=== PATIENT | female | born 1940 | race Caucasian/White ===

== ENCOUNTER → 2017-12-22 11:17 | Outpatient (CLI) | payer MEDICARE, OTHER, SELFPAY ==
--- NOTE | 2017-12-22 11:24 | BI_ITS ---
MAMMOGRAPHY - BILATERAL SCREENING REASON FOR EXAM: Female, 77 years old. Routine annual screening examination. PERTINENT HISTORY: Non-contributory. History of prior bilateral breast reduction surgery. TECHNIQUE: Digital bilateral breast ella (3D mammographic acquisition) in the CC and MLO projections. 2-D mediolateral oblique (MLO) and craniocaudad (CC) views of both breasts were obtained. CAD: Full Field Digital Mammography with Computer Added Detection was performed. COMPARISON: Comparison is made with prior study dated July 03, 2013. FINDINGS: Breast Composition: There are scattered areas of fibroglandular density. There are no dominant masses or suspicious calcifications. No other significant abnormalities are identified. There has been no significant change since the prior study. BI/SCREENING MAMM (CAD), BILAT IMPRESSION: Stable bilateral screening mammogram. Yearly follow-up mammogram recommended. (A) ASSESSMENT CATEGORY: BIRADS Category 1: Negative. A letter regarding these results will be sent to the patient by the facility within 30 days. Approximately 10% of breast cancers are not detected by mammography. A normal mammogram should not delay biopsy of a clinically suspicious abnormality. [id number] Electronically Signed: Louis Samuel MD at 11:19 EDT Tel [phone], Service support ,
--- NOTE | 2017-12-22 11:45 | BD_ITS ---
STUDY: DUAL ENERGY X-RAY ABSORPTIOMETRY / DXA REASON FOR EXAM: Female, 77 years old. The patient is postmenopausal. Loss of height. TECHNIQUE: Bone Mineral Density (BMD) measurements of lumbar spine and bilateral hips were obtained. COMPARISON: None. FINDINGS: Lumbar Spine (L1-L4): g/cm2 (1.228) / T-score (0.5) / Z-score (2.3) Findings are suggestive of normal bone density with a low fracture risk. Left Femur Total: g/cm2 (0.892) / T-score (-0.9) / Z-score (1.0) Left Femoral Neck: g/cm2 (0.828) / T-score (-1.5) / Z-score (0.6) Right Femur Total: g/cm2 (0.903) / T-score (-0.8) / Z-score (1.1) Right Femoral Neck: g/cm2 (0.899) / T-score (-1.0) / Z-score (1.1) Right Forearm: g/cm2 ( ) / T-score ( ) / Z-score ( ) BD/Dexa Bone Density Study IMPRESSION: The patient is considered osteopenic as outlined below according to World Ajay Organization (WHO) criteria with a moderate fracture risk. Reference Information: The T-score is the number of standard deviations above or below the standard which is normal for young adults at their peak bone mineral density. The World Health Organization (WHO) interprets the T-scores as follows: Above -1 Normal bone density Between -1 and -2.5 Osteopenia Equal to / or below -2.5 Osteoporosis As a practical clinical guideline, osteopenia may be graded as follows: Mild -1 through -1.5 Moderate -1.6 through -2.0 Severe -2.1 through -2.4 The Z-score is the number of standard deviations above or below age-matched controls. A Z-score of less than -1.5 would be considered abnormal. References: 1. NIH Osteoporosis and Related Bone Diseases http://www.osteo.org 2. International Society for Clinical Densitometry http://www.iscd.org 3. National Osteoporosis Foundation http://www.nof.org Electronically Signed: Louis Samuel MD at 10:52 EDT Tel [phone], Service support ,
== END ==
PROVIDERS: Family Provider Family Medicine; PCP Family Medicine; Visit Provider Family Medicine
DX: Z00.00 Encounter for general adult medical examination without abnormal findings (principal); Z12.31 Encounter for screening mammogram for malignant neoplasm of breast; N95.9 Unspecified menopausal and perimenopausal disorder
CPT/HCPCS: 77063; 77067; 77080

== ENCOUNTER → 2018-01-26 08:44 | Outpatient (CLI) | payer MEDICARE, OTHER, SELFPAY ==
[2018-01-26 10:51] LABS: ALB/GLOB Ratio 1.1 RATIO (0.9-2.4); AST(SGOT) 20 U/L (15-37); Alanine Aminotransfer ALT/SGPT 28 U/L (13-56); Albumin, Serum 3.9 g/dL (3.2-5.0); Alkaline Phosphatase 64 U/L (45-117); Anion Gap 7 (5-15); BUN 9 mg/dL (7-18); BUN/Creat Ratio 9.6 RATIO (10-20); Calcium,Total 8.8 mg/dL (8.5-10.1); Chloride 106 mmol/L (98-107); Cholesterol 166 mg/dL (200); Creatinine, Serum 0.94 mg/dL (0.55-1.02); EST Glomerular Filtration Rate 61 mL/min (>60); Est Glom Filt Rate - Afr Amer 74 mL/min (>60); Globulin 3.6 g/dL (2.2-4.2); Glucose 92 mg/dL (74-106); High Density Lipoprotein 64 mg/dL; Magnesium 2.2 mg/dL (1.6-2.6); Potassium 4.1 mmol/L (3.5-5.1); Protein, Total 7.5 g/dL (6.4-8.2); Sodium Level 142 mmol/L (136-145); Thyroid Stim Hormone (TSH) 3.03 uIU/mL (0.358-3.74); Triglycerides 119 mg/dL; Very Low Density Lipoprotein 24 mg/dL (5-40)
[2018-01-26 11:12] LABS: Microalbumin,Random Urine 6.6 mg/L (NO RANGE EST.); Microalbumin:Creatinine Ratio 8.4 mg/g CRE (<30 mg/g CRE)
[2018-01-26 11:41] LABS: Vitamin D,25 Hydroxy 8.6 ng/mL (29.95-100.01)
== END ==
PROVIDERS: Family Provider Family Medicine; PCP Family Medicine; Visit Provider Family Medicine
DX: Z00.00 Encounter for general adult medical examination without abnormal findings (principal); I10 Essential (primary) hypertension; M85.80 Other specified disorders of bone density and structure, unspecified site; E78.00 Pure hypercholesterolemia, unspecified
CPT/HCPCS: 36415; 80053; 80061; 82043; 82306; 82570; 83735; 84443

== ENCOUNTER → 2019-01-11 | Outpatient (CLI) | payer MEDICARE, OTHER, SELFPAY ==
[2019-01-11 13:01] LABS: Vitamin D,25 Hydroxy 20.2 ng/mL (29.95-100.01)
[2019-01-11 13:03] LABS: ALB/GLOB Ratio 1.2 RATIO (0.9-2.4); AST(SGOT) 20 U/L (15-37); Alanine Aminotransfer ALT/SGPT 23 U/L (13-56); Albumin, Serum 3.8 g/dL (3.2-5.0); Alkaline Phosphatase 62 U/L (45-117); Anion Gap 7 (5-15); BUN 17 mg/dL (7-18); BUN/Creat Ratio 18.5 RATIO (10-20); Calcium,Total 9.1 mg/dL (8.5-10.1); Chloride 105 mmol/L (98-107); Cholesterol 154 mg/dL (200); Creatinine, Serum 0.92 mg/dL (0.55-1.02); EST Glomerular Filtration Rate 63 mL/min (>60); Est Glom Filt Rate - Afr Amer 76 mL/min (>60); Globulin 3.2 g/dL (2.2-4.2); Glucose 78 mg/dL (74-106); High Density Lipoprotein 59 mg/dL; Potassium 4.2 mmol/L (3.5-5.1); Sodium Level 138 mmol/L (136-145); Triglycerides 103 mg/dL; Very Low Density Lipoprotein 21 mg/dL (5-40)
== END | disposition home or self-care (01) ==
LOC: MFPLAB 10:34
PROVIDERS: Family Provider Family Medicine; PCP Family Medicine; Referring Provider Family Medicine; Visit Provider Nurse Practitioner Family
DX: E78.00 Pure hypercholesterolemia, unspecified (principal); E55.9 Vitamin D deficiency, unspecified
CPT/HCPCS: 36415; 80053; 80061; 82306

== ENCOUNTER → 2019-05-19 10:59 | Outpatient (CLI) | payer MEDICARE, OTHER, SELFPAY ==
[2019-05-19 13:39] LABS: ALB/GLOB Ratio 1.2 RATIO (0.9-2.4); AST(SGOT) 21 U/L (15-37); Alanine Aminotransfer ALT/SGPT 26 U/L (13-56); Alkaline Phosphatase 63 U/L (45-117); Anion Gap 10 (5-15); BUN 12 mg/dL (7-18); BUN/Creat Ratio 13.2 RATIO (10-20); Calcium,Total 9.6 mg/dL (8.5-10.1); Chloride 103 mmol/L (98-107); Creatinine, Serum 0.91 mg/dL (0.55-1.02); EST Glomerular Filtration Rate 64 mL/min (>60); Est Glom Filt Rate - Afr Amer 77 mL/min (>60); Globulin 3.4 g/dL (2.2-4.2); Glucose 77 mg/dL (74-106); Potassium 4.1 mmol/L (3.5-5.1); Protein, Total 7.4 g/dL (6.4-8.2); Sodium Level 141 mmol/L (136-145)
[2019-05-19 14:00] LABS: Vitamin D,25 Hydroxy 51.7 ng/mL (29.95-100.01)
== END ==
PROVIDERS: Family Provider Family Medicine; PCP Family Medicine; Referring Provider Family Medicine; Visit Provider Family Medicine
DX: I10 Essential (primary) hypertension (principal); E55.9 Vitamin D deficiency, unspecified
CPT/HCPCS: 36415; 80053; 82306

== ENCOUNTER → 2019-12-01 12:25 | Outpatient (CLI) | payer MEDICARE, OTHER, SELFPAY ==
--- NOTE | 2019-12-01 12:29 | BI_ITS ---
MAMMOGRAPHY - BILATERAL SCREENING REASON FOR EXAM: Female, 79 years old. Routine annual screening examination. PERTINENT HISTORY: Non-contributory. TECHNIQUE: Digital bilateral breast lara (3D mammographic acquisition) in the CC and MLO projections. 2-D mediolateral oblique (MLO) and craniocaudad (CC) views of both breasts were obtained. CAD: Full Field Digital Mammography with Computer Added Detection was performed. COMPARISON: Comparison is made with prior study dated December 22, 2017 and July 03, 2013. FINDINGS: Breast Composition: There are scattered areas of fibroglandular density. There are no dominant masses or suspicious calcifications. Stable benign-appearing bilateral axillary lymph nodes. No other significant abnormalities are identified. There has been no significant change since the prior study. BI/SCREEN MAMM (CAD) W/LARA BILAT IMPRESSION: Stable bilateral screening mammogram. Yearly follow-up mammogram recommended. (A) ASSESSMENT CATEGORY: BIRADS Category 2: Benign. A letter regarding these results will be sent to the patient by the facility within 30 days. Approximately 10% of breast cancers are not detected by mammography. A normal mammogram should not delay biopsy of a clinically suspicious abnormality. [id number] Electronically Signed: Louis Samuel, at 13:31 EDT , Service support ,
== END ==
PROVIDERS: PCP Family Medicine; Referring Provider Family Medicine; Visit Provider Family Medicine
DX: Z00.00 Encounter for general adult medical examination without abnormal findings (principal); Z12.31 Encounter for screening mammogram for malignant neoplasm of breast
CPT/HCPCS: 77063; 77067

== ENCOUNTER → 2021-02-05 | Outpatient (CLI) | payer MEDICARE, OTHER, SELFPAY ==
[2021-02-05 19:05] LABS: Probe Check PASS; Specimen Processing Control PASS
== END | disposition home or self-care (01) ==
PROVIDERS: PCP Family Medicine; Referring Provider Family Medicine; Visit Provider Family Medicine
DX: J39.9 Disease of upper respiratory tract, unspecified (principal)
CPT/HCPCS: 87633; 87635; U0005; U0003

== ENCOUNTER → 2021-03-18 16:24 | Outpatient (CLI) | payer MEDICARE, OTHER, SELFPAY ==
[2021-03-18 18:04] LABS: Vitamin B12 358 pg/mL (211-911); Vitamin D,25 Hydroxy 46.2 ng/mL
== END ==
PROVIDERS: Nurse Practitioner Family; PCP Family Medicine; Visit Provider Family Medicine
DX: E55.9 Vitamin D deficiency, unspecified (principal); R53.83 Other fatigue
CPT/HCPCS: 36415; 82306; 82607

== ENCOUNTER → 2021-05-12 10:58 | Outpatient (CLI) | payer MEDICARE, OTHER, SELFPAY ==
[2021-05-12 11:49] LABS: Absolute Lymphocyte Count 2.52 X10^3/uL (0.83-4.51); Absolute Neutrophil Count 4.4 X10^3/uL (2.0-7.7); Basophil# 0.04 X10^3/uL; Basophil% 0.5 % (0-1); Eosinophil# 0.22 X10^3/uL; Eosinophils% 2.8 % (0-5); Hematocrit 44.3 % (37-47); Hemoglobin 14.6 g/dL (12.0-15.0); Lymphocyte # 2.52 X10^3/ul (0.83-4.51); Lymphocyte % 32.6 % (19-41); Mean Corpuscular Hgb 28.4 pg (27.0-32.0); Mean Corpuscular Volume 86.2 fL (81-99); Mean Platelet Vol. 11.2 fl (6.2-12.0); Monocyte% 6.5 % (0-10); NRBC Flagged by Analyzer 0 % (0-5); Neutrophil # 4.44 X10^3/uL (2.7-7.7); Neutrophil % 57.3 % (47-70); Platelet Count 223 K/mm3 (150-450); RBC Distribution Width CV 14.9 % (11.6-14.6); RBC Distribution Width SD 47.9 fl (35.1-43.9); Red Blood Count 5.14 M/mm3 (4.2-5.4); White Blood Count 7.7 K/mm3 (4.4-11.0)
[2021-05-12 12:54] LABS: Vitamin B12 323 pg/mL (211-911)
[2021-05-12 13:06] LABS: AST(SGOT) 22 U/L (15-37); Alanine Aminotransfer ALT/SGPT 24 U/L (13-56); Albumin, Serum 3.8 g/dL (3.2-5.0); Alkaline Phosphatase 59 U/L (45-117); Anion Gap 5 (5-15); BUN 11 mg/dL (7-18); BUN/Creat Ratio 12.3 RATIO (10-20); Calcium,Total 9.1 mg/dL (8.5-10.1); Chloride 107 mmol/L (98-107); EST Glomerular Filtration Rate 64 mL/min (>60); Est Glom Filt Rate - Afr Amer 78 mL/min (>60); Globulin 3.8 g/dL (2.2-4.2); Glucose 85 mg/dL (74-106); Potassium 3.9 mmol/L (3.5-5.1); Protein, Total 7.6 g/dL (6.4-8.2); Sodium Level 140 mmol/L (136-145)
== END ==
PROVIDERS: PCP Family Medicine; Visit Provider Family Medicine
DX: R53.83 Other fatigue (principal); M85.80 Other specified disorders of bone density and structure, unspecified site
CPT/HCPCS: 36415; 80053; 82607; 82746; 85025

== ENCOUNTER → 2021-11-11 | Outpatient (CLI) | payer MEDICARE, OTHER, SELFPAY ==
[2021-11-11 12:21] LABS: Absolute Lymphocyte Count 2.72 X10^3/uL (0.83-4.51); Basophil# 0.04 X10^3/uL; Basophil% 0.5 % (0-1); Eosinophil# 0.23 X10^3/uL; Eosinophils% 3.1 % (0-5); Hematocrit 45.5 % (37-47); Hemoglobin 14.8 g/dL (12.0-15.0); Lymphocyte # 2.72 X10^3/ul (0.83-4.51); Lymphocyte % 36.2 % (19-41); Mean Corp Hgb Conc 32.5 g/dL (32-36); Mean Corpuscular Hgb 28.8 pg (27.0-32.0); Mean Corpuscular Volume 88.7 fL (81-99); Mean Platelet Vol. 10.9 fl (6.2-12.0); Monocyte# 0.48 X10^3/uL; Monocyte% 6.4 % (0-10); NRBC Flagged by Analyzer 0 % (0-5); Neutrophil # 4.03 X10^3/uL (2.7-7.7); Neutrophil % 53.5 % (47-70); Platelet Count 219 K/mm3 (150-450); RBC Distribution Width CV 14.1 % (11.6-14.6); RBC Distribution Width SD 46.1 fl (35.1-43.9); Red Blood Count 5.13 M/mm3 (4.2-5.4); White Blood Count 7.5 K/mm3 (4.4-11.0)
[2021-11-11 12:57] LABS: AST(SGOT) 23 U/L (15-37); Alanine Aminotransfer ALT/SGPT 28 U/L (13-56); Albumin, Serum 3.8 g/dL (3.2-5.0); Alkaline Phosphatase 61 U/L (45-117); Anion Gap 8 (5-15); BUN 14 mg/dL (7-18); BUN/Creat Ratio 15.8 RATIO (10-20); Calcium,Total 9.2 mg/dL (8.5-10.1); Chloride 105 mmol/L (98-107); Cholesterol 165 mg/dL (200); Creatinine, Serum 0.89 mg/dL (0.55-1.02); EST Glomerular Filtration Rate 65 mL/min (>60); Est Glom Filt Rate - Afr Amer 78 mL/min (>60); Globulin 3.7 g/dL (2.2-4.2); Glucose 89 mg/dL (74-106); High Density Lipoprotein 60 mg/dL; Potassium 4.1 mmol/L (3.5-5.1); Protein, Total 7.5 g/dL (6.4-8.2); Sodium Level 139 mmol/L (136-145); Thyroid Stim Hormone (TSH) 3.07 uIU/mL (0.358-3.74); Triglycerides 118 mg/dL; Very Low Density Lipoprotein 24 mg/dL (5-40)
[2021-11-11 13:00] LABS: Microalbumin,Random Urine 6.7 mg/L (NO RANGE EST.); Microalbumin:Creatinine Ratio 8.5 mg/g CRE (<30 mg/g CRE)
== END | disposition home or self-care (01) ==
LOC: MFPLAB 10:06
PROVIDERS: PCP Family Medicine; Referring Provider Family Medicine; Visit Provider Family Medicine
DX: I10 Essential (primary) hypertension (principal); E78.00 Pure hypercholesterolemia, unspecified
CPT/HCPCS: 36415; 80053; 80061; 82043; 82570; 84443; 85025

== ENCOUNTER 2021-12-15 09:14 | Outpatient (CLI) | payer MEDICARE, OTHER, SELFPAY ==
[2021-12-15 09:20] LABS: Lyme Ab Screen Interpretation REF LAB
[2021-12-15 10:36] LABS: Absolute Neutrophil Count 3.4 X10^3/uL (2.0-7.7); Basophil# 0.04 X10^3/uL; Basophil% 0.6 % (0-1); Eosinophil# 0.26 X10^3/uL; Eosinophils% 3.7 % (0-5); Erythrocyte Sedimentation Rate 6 mm/hr (0-30); Hematocrit 43.3 % (37-47); Hemoglobin 14.3 g/dL (12.0-15.0); Lymphocyte % 37.3 % (19-41); Mean Corpuscular Hgb 29.2 pg (27.0-32.0); Mean Corpuscular Volume 88.5 fL (81-99); Mean Platelet Vol. 10.6 fl (6.2-12.0); Monocyte% 8.6 % (0-10); NRBC Flagged by Analyzer 0 % (0-5); Neutrophil # 3.44 X10^3/uL (2.7-7.7); Neutrophil % 49.4 % (47-70); Platelet Count 225 K/mm3 (150-450); RBC Distribution Width CV 14.3 % (11.6-14.6); RBC Distribution Width SD 46.1 fl (35.1-43.9); Red Blood Count 4.89 M/mm3 (4.2-5.4)
[2021-12-15 10:57] LABS: PTHIN 49.6 pg/mL (18.4-80.1)
[2021-12-15 11:14] LABS: AST(SGOT) 20 U/L (15-37); Alanine Aminotransfer ALT/SGPT 28 U/L (13-56); Albumin, Serum 3.7 g/dL (3.2-5.0); Alkaline Phosphatase 55 U/L (45-117); Anion Gap 6 (5-15); BUN 18 mg/dL (7-18); BUN/Creat Ratio 19.4 RATIO (10-20); CRP 3.89 mg/L (0.0-3.0); Chloride 107 mmol/L (98-107); Creatinine, Serum 0.93 mg/dL (0.55-1.02); EST Glomerular Filtration Rate 62 mL/min (>60); Est Glom Filt Rate - Afr Amer 74 mL/min (>60); Globulin 3.6 g/dL (2.2-4.2); Glucose 71 mg/dL (74-106); Potassium 3.5 mmol/L (3.5-5.1); Protein, Total 7.3 g/dL (6.4-8.2); Rheumatoid Factor < 10.0 IU/mL (<15); Sodium Level 139 mmol/L (136-145); Thyroid Stim Hormone (TSH) 3.23 uIU/mL (0.358-3.74)
[2021-12-16 14:36] LABS: ANTINUCLEAR ANTIBODIES DIRECT Negative (Negative)
[2021-12-16 17:23] LABS: Lyme Scn Total Ab w/Rflx Negative (Negative)
== END 2021-12-15 23:59 | disposition home or self-care (01) ==
LOC: MFPLAB 09:18
PROVIDERS: PCP Family Medicine; Visit Provider Family Medicine
DX: M25.50 Pain in unspecified joint (principal); R53.83 Other fatigue
CPT/HCPCS: 36415; 80053; 83970; 84443; 85025; 85652; 86038; 86140; 86431; 86618

== ENCOUNTER 2022-06-09 09:34 | Outpatient (CLI) | payer MEDICARE, OTHER, SELFPAY ==
[2022-06-09 12:27] LABS: Erythrocyte Sedimentation Rate 9 mm/hr (0-30)
[2022-06-09 12:30] LABS: Absolute Lymphocyte Count 2.81 X10^3/uL (0.83-4.51); Absolute Neutrophil Count 3.6 X10^3/uL (2.0-7.7); Basophil# 0.05 X10^3/uL; Basophil% 0.7 % (0-1); Eosinophil# 0.26 X10^3/uL; Eosinophils% 3.6 % (0-5); Hematocrit 44.8 % (37-47); Hemoglobin 15.1 g/dL (12.0-15.0); Lymphocyte # 2.81 X10^3/ul (0.83-4.51); Lymphocyte % 38.9 % (19-41); Mean Corp Hgb Conc 33.7 g/dL (32-36); Mean Corpuscular Hgb 30.1 pg (27.0-32.0); Mean Corpuscular Volume 89.4 fL (81-99); Monocyte# 0.54 X10^3/uL; Monocyte% 7.5 % (0-10); NRBC Flagged by Analyzer 0 % (0-5); Neutrophil # 3.56 X10^3/uL (2.7-7.7); Neutrophil % 49.2 % (47-70); Platelet Count 214 K/mm3 (150-450); RBC Distribution Width CV 14.1 % (11.6-14.6); RBC Distribution Width SD 45.3 fl (35.1-43.9); Red Blood Count 5.01 M/mm3 (4.2-5.4); White Blood Count 7.2 K/mm3 (4.4-11.0)
[2022-06-09 12:56] LABS: CRP < 2.90 mg/L (0.0-3.0)
== END 2022-06-09 23:59 | disposition home or self-care (01) ==
PROVIDERS: PCP Family Medicine; Referring Provider Ophthalmology; Visit Provider Ophthalmology
DX: H53.2 Diplopia (principal)
CPT/HCPCS: 36415; 85025; 85652; 86140

== ENCOUNTER 2022-11-20 09:00 | Outpatient (RCR) | payer MEDICARE, OTHER, SELFPAY ==
--- NOTE | 2022-11-04 11:58 | HP.PTEVAL_ITS ---
Patient's Visit Information CHET LEON is a 82 year old F referred to Physical Therapy by Dr. Jimi Sanderson MD with a diagnosis of PALOMA SHLD PAIN AND ARTHRITIS. Date of Evaluation: 11/04/22 Physical Therapist: Poppy Ness PT, Cert MDT - Visit Plan Frequency: 2-3x /Week Duration: 4-6 Weeks Plan: FOCUS ON HEP INSTRUCTION FOR POSTURE AND PALOMA SHLD STRETCHING AND STRENGTHENING. NECK AND/OR SHLD US/MH NEEDED. POSTURE CORRECTION/STRENGTHENING, INSTRUCTION IN APPROPRIATE BODY MECHANICS AND ACTIVITY MODIFICATIONS. PALOMA UE ROM, STRETCHING AND STRENGTHENING. - Subjective Work/Leisure: RETIRED. Present symptoms: PALOMA SHLD PAIN R > LEFT. ONLY SLIGHT PAIN IN L SHLD. PALOMA HAND TINGLING (PATIENT STATES SHE TOLD DR. SANDERSON ABOUT HER HANDS). NO NECK PAIN. NO HEADACHES. ABOUT 2 WKS AGO NOTICED CLICKING IN NECK THAT LASTED 3-4 DAYS. Present since: R SHLD PAIN STARTED IN JUL 2022 THEN PALOMA HAND TINGLING STARTED SEPTEMBER 2022. Pain Scale: Worst - 3/10 Least - 0/10. Currently: 0/10. Commenced as a result of: NO APPARENT REASON. Symptoms at onset: R SHLD PAIN. Worse: REACHING FOR SOMETHING UP HIGH, REACHING UP AND OUT TO TURN THE LIGHT OFF AT NIGHT WHILE IN BED. Better: NOT REACHING. PRESCRIPTION CREAM. HOT SHOWER. Disturbed sleep: NOT CURRENTLY. Previous history/Previous treatment: UNREMARKABLE. NO NECK OR SHLD SX'S. NO CHIROPRACTIC. NO INJECTIONS. This episode: PRESCRIPTION CREAM, OTC IBUPROFEN. Dizziness: NO. Tinnitis: NO. Nausea: NO. Shortness of Breath: NO. Difficulty Swollowing: NO. Gait: NORMAL. Accidents: NO. Unexplained weight loss: NO. Imaging: NONE. PMH/Recent major surgery: HIGH CHOLESTEROL. HTN. - Objective Sitting Posture/Standing Posture: FH. RSH'S. Active Correction of posture: BETTER. SLOUCHING PROVOKES L SHLD PAIN. NE ON HANDS. Other Observations: INDEP GAIT AND TRANSFERS. Sensory deficit: PALOMA UE LIGHT TOUCH SENSATION GROSSLY INTACT AND SYMMETRICAL. ROM deficit: ONLY ABLE TO ELEVATE PALOMA SHLDS APPROX 130 DEG. 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 Reflexes: 2/3 PALOMA UE'S. Dural Signs: NEGATIVE PALOMA UE'S. Cervical Mvmt Loss: Flex: NIL. Pro: NIL. Ext: MOD. Ret: KAT. RSB: KAT. LSB: MOD. R Rot: MOD. L Rot: MOD. Postural strength: POOR. Palpation: NO ACUTE NECK OR SHLD TENDERNESS. TREATMENT: NEUROMUSCULAR REEDUCATION - RETRAINING OF MVMT AND POSTURE FOR SITTING AND STANDING ACTIVITIES. - Balance/Special Test Scores Quick DASH Score: 18.1800 - Goals Goal 1:: DECREASE C/O PALOMA SHLD AND HAND SX'S. Goal Time Frame: 4-6 Weeks Goal 2:: IMPROVE R UE REACHING UP AND OUT PAINFREE FUNCTION Goal Time Frame: 4-6 Weeks Goal 3:: PATIENT WILL BE INDEP WITH A HEP FOR CONTINUED IMPROVEMENT ONCE FORMAL PHYSICAL THERAPY CONCLUDES. Goal Time Frame: 4-6 Weeks - Anticipated Interventions Patient/Client Instruction: Educate patient on: Condition, Plan of Care, Risk Factors For the Purpose of:: To improve self management Therapeutic Exercise to Include: Strength training, Body mechanics, Postural training, Flexibilty training, Neuromotor development, Passive ROM, Active ROM, Scapular Strength/Stabilization For the Purpose of:: To decrease pain, To increase ROM, To improve muscle performance and motor function, To increase tolerance to activity/condition/position, To improve ability of physical actions for home/community/work/leisure Thermo therapy (hot pack): Yes Ultrasound (thermal/non thermal): Yes For the Purpose of:: To decrease pain, To improve nutrient delivery to tissue Thank you for the opportunity to evaluate your patient. For Medicare and Medicare HMO plans, please review the plan of care and approve it. It will need to be FAXED BACK to us at [phone] for Medicare purposes. For Medicare only, by signing this I certify the plan of care. Please let me know if there are questions or concerns regarding this plan of care. Physician Signature:____ Date:
--- NOTE | 2022-11-20 09:31 | HP.PTDCSUM ---
It has been my pleasure to treat CHET LEON referred by Dr. Jimi Sanderson MD, with the diagnosis of PALOMA SHLD PAIN AND ARTHRITIS for a total of 5 visit(s). Discharge Date: Please see the following information for a summary of their discharge status. Subjective: PATIENT REPORTS HER SHOULDERS ARE MUCH BETTER. OCCASSIONALLY STILL HAVING SOME DISCOMFORT IN BOTH SHOULDERS. PATIENT STATES SHE HAS BEEN GIVEN HOME EX'S TODAY. PATIENT REPORTS SHE WOULD LIKE TO TRY TO JUST CONTINUE ON HER OWN WITH HER HOME EX'S AT THIS POINT. R shoulder Pain Intensity (Out of 10): 0 L Shoulder Pain Intensity (Out of 10): 0 L knee Pain Intensity (Out of 10): 5 % Improvement: 80 Objective/Function: ALL GOALS MET. PATIENT DEMO'S PAINFREE PALOMA UE FUNCTIONAL ROM AND STREGNTH TODAY. PATIENT IS APPROPRIATE FOR AND AGREEABLE TO DISCHARGE. Goal 1:: DECREASE C/O PALOMA SHLD AND HAND SX'S. Goal Progress: Goal Met Goal 2:: IMPROVE R UE REACHING UP AND OUT PAINFREE FUNCTION Goal Progress: Goal Met Goal 3:: PATIENT WILL BE INDEP WITH A HEP FOR CONTINUED IMPROVEMENT ONCE FORMAL PHYSICAL THERAPY CONCLUDES. Goal Progress: Goal Met Plan: D/C TO HEP If there are questions or concerns regarding this patient's physical therapy, please feel free to call me at [phone]. Thank you for the referral of this patient. Sincerely, Poppy Ness, PT, Cert MDT Balance/Gait/Functional tests - Balance/Special Test Scores Quick DASH Score: 18.1800
== END 2022-11-20 19:00 | disposition home or self-care (01) ==
LOC: PT 09:00
PROVIDERS: PCP Family Medicine; Referring Provider Family Medicine; Visit Provider Family Medicine
DX: M25.511 Pain in right shoulder (principal); M25.512 Pain in left shoulder; M19.019 Primary osteoarthritis, unspecified shoulder
CPT/HCPCS: 97110; 97162; 97530

== ENCOUNTER → 2023-07-14 | Outpatient (CLI) | payer MEDICARE, OTHER, SELFPAY ==
--- NOTE | 2023-07-14 13:50 | RAD_ITS ---
STUDY: X-RAY CHEST REASON FOR EXAM: Female, 82 years old. SOB, cough TECHNIQUE: PA and lateral views of the chest. COMPARISON: 09/25/2014. FINDINGS: The lungs are underexpanded with minimal right midlung and bilateral basilar atelectasis. Otherwise lung hudson are clear. There is no demonstrated pleural abnormality. Normal size heart. Normal mediastinum and harriet. Normal visualized pulmonary arteries. There is atherosclerotic calcification of the aortic arch with tortuosity. There are diffuse degenerative changes of the visualized thoracic spine. Normal visualized ribs, clavicles, and shoulders. There is no demonstrated abnormality of the visualized soft tissue structures of the upper abdomen. RAD/Chest PA and Lateral IMPRESSION: Mild bilateral basilar and right midlung atelectasis. Otherwise no acute cardiopulmonary disease. Electronically Signed: Nithya Navarro MD at 17:11 EST ,
--- OUTSIDE RECORDS SUMMARY | 2023-07-14 14:15 | XMS RPT_ITS | CCD ---
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 Name Role Phone Josse Almazan (Historical) Primary Care Prov ider Unavailable Results Test Name Value Interpretation Reference Range Facil ity Encounters Encounter Date Encounter Type Care Provider Facility Start: 06-23-2001 End: 06-23-2001 Patient encounter procedure Ronnie Ruiz Jose Work Phone: [facility] Start: 06-23-2001 Results Only Ronnie Ruiz Jose Work Phone: [facility] Procedures Date Procedure Procedure Detail Performing Clinician Start: 06-23-2001 CONVERTED SURGICAL PATHOLOGY Ronnie Garcia Work Phone: Plan of Treatment Date Care Activity Detail Author Start: 03-12-2020 Influenza vaccination INFLUENZA (#1) [facility] Start: 2004 ADVANCE DIRECTIVE DISCUSSION ADVANCE DIRECTIVE DISCUSSION [facility] Start: 2004 PNEUMOVAX AGE 65 AND OVER WITH 5YR LOOKBACK (#1) PNEUMOVAX AGE 65 AND OVER WITH 5YR LOOKBACK (#1) [facility] Start: 1989 SHINGRIX VACCINE (1 of 2) PEÑA GRIX VACCINE (1 of 2) [facility] Start: 1984 DIABETES SCREEN DIABETES SCREEN [facility] Start: 1984 LIPID SCREEN LIPID SCREEN [facility] Start: 1958 Urine microalbumin profile DTAP,TDAP ,TD (1 - Tdap) [facility] Social History Date Type Detail Facility Tobacco smoking status NHIS Unknown if ev er smoked [facility] Sex Assigned At Not on file [facility] Additional Source Comments Source Comments (unrecognize d section and content) In the event this informatio n is protected by the Federal Confidentiality of Alcohol and Drug Abuse Patient Records regulations: The Federal rules restrict any use of the information to criminally investigate or prosecute any alcohol or drug abuse patient.[facility] FOR RECORDS PERTAINING TO PATIENTS WHO ARE OR HAVE BEEN ENROLLED IN A CHEMICAL DEPENDENCY/SUBSTANCEABUSE PROGRAM, SOME INFORMATION MAY BE OMITTED. This clinical summary was aggregated from multiple sources. Caution should be exercised in using it in the provision of clinical care. This summary normalizes information from multiple sources, and as a consequence, information in this document may materially change the coding, format and clinical context of patient data. In addition, data may be omitted in some cases. CLINICAL DECISIONS SHOULD BE BASED ON THE PRIMARY CLINICAL RECORDS. [employer] [facility]. provides no warranty or guarantee of the accuracy or completeness of information in this document.
== END | disposition home or self-care (01) ==
PROVIDERS: PCP Family Medicine; Referring Provider Nurse Practitioner Family; Visit Provider Nurse Practitioner Family
DX: R06.02 Shortness of breath (principal)
CPT/HCPCS: 71046

== ENCOUNTER → 2023-12-29 | Outpatient (CLI) | payer MEDICARE, OTHER, SELFPAY ==
[2023-12-29 11:46] LABS: AST(SGOT) 23 U/L (15-37); Alanine Aminotransfer ALT/SGPT 25 U/L (13-56); Albumin, Serum 3.6 g/dL (3.2-5.0); Alkaline Phosphatase 60 U/L (45-117); Anion Gap 11 (5-15); BUN 16 mg/dL (7-18); BUN/Creat Ratio 15.1 RATIO (10-20); Calcium,Total 9.3 mg/dL (8.5-10.1); Chloride 107 mmol/L (98-107); Cholesterol 163 mg/dL (200); Creatinine, Serum 1.06 mg/dL (0.55-1.02); EST Glomerular Filtration Rate 52 mL/min (>60); Est Glom Filt Rate - Afr Amer 64 mL/min (>60); Globulin 3.6 g/dL (2.2-4.2); Glucose 98 mg/dL (74-106); High Density Lipoprotein 55 mg/dL; Potassium 3.7 mmol/L (3.5-5.1); Protein, Total 7.2 g/dL (6.4-8.2); Sodium Level 141 mmol/L (136-145); Thyroid Stim Hormone (TSH) 3.46 uIU/mL (0.358-3.74); Triglycerides 107 mg/dL; Very Low Density Lipoprotein 21 mg/dL (5-40)
== END | disposition home or self-care (01) ==
LOC: MFPLAB 09:07
PROVIDERS: PCP Family Medicine; Visit Provider Family Medicine
DX: E78.5 Hyperlipidemia, unspecified (principal); I10 Essential (primary) hypertension
CPT/HCPCS: 36415; 80053; 80061; 82043; 82570; 84443

== ENCOUNTER → 2023-12-30 | Outpatient (CLI) | payer MEDICARE, OTHER, SELFPAY ==
[2023-12-30 18:14] LABS: Microalbumin,Random Urine 25.1 mg/L (NO RANGE EST.); Microalbumin:Creatinine Ratio 8.7 mg/g CRE (<30 mg/g CRE)
== END | disposition home or self-care (01) ==
LOC: MFPLAB 16:05
PROVIDERS: PCP Family Medicine; Visit Provider Family Medicine
DX: E78.5 Hyperlipidemia, unspecified (principal); I10 Essential (primary) hypertension
CPT/HCPCS: 82043; 82570

== ENCOUNTER → 2024-01-06 | Outpatient (CLI) | payer MEDICARE, OTHER, SELFPAY ==
--- NOTE | 2024-01-06 14:45 | BD_ITS ---
STUDY: DUAL ENERGY X-RAY ABSORPTIOMETRY / DXA REASON FOR EXAM: Female, 83 years old. M85.89 TECHNIQUE: Bone Mineral Density (BMD) measurements of lumbar spine and bilateral hips were obtained. COMPARISON: 12/22/2017 FINDINGS: Lumbar Spine (L1-L4): g/cm2 (1.087) / T-score (1.0) / Z-score (3.6) Findings are suggestive of normal bone density with a low fracture risk. Left Femur Total: g/cm2 (0.891) / T-score (-0.4) / Z-score (1.9) Left Femoral Neck: g/cm2 (0.670) / T-score (-1.6) / Z-score (0.9) Right Femur Total: g/cm2 (0.829) / T-score (-0.9) / Z-score (1.4) Right Femoral Neck: g/cm2 (0.677) / T-score (-1.5) / Z-score (0.9) BD/Dexa Bone Density Study IMPRESSION: The patient is considered osteopenic as outlined below according to World Ajay Organization (WHO) criteria with a moderate fracture risk. There has been no change of bone density since the previous examination. Reference Information: The T-score is the number of standard deviations above or below the standard which is normal for young adults at their peak bone mineral density. The World Health Organization (WHO) interprets the T-scores as follows: Above -1 Normal bone density Between -1 and -2.5 Osteopenia Equal to / or below -2.5 Osteoporosis As a practical clinical guideline, osteopenia may be graded as follows: Mild -1 through -1.5 Moderate -1.6 through -2.0 Severe -2.1 through -2.4 The Z-score is the number of standard deviations above or below age-matched controls. A Z-score of less than -1.5 would be considered abnormal. References: 1. NIH Osteoporosis and Related Bone Diseases www osteo.org 2. International Society for Clinical Densitometry www iscd.org 3. National Osteoporosis Foundation www nof.org Electronically Signed: Primitivo Feng MD at 10:23 EDT ,
--- NOTE | 2024-01-06 14:45 | BI_ITS ---
MAMMOGRAPHY - BILATERAL SCREENING REASON FOR EXAM: Female, 83 years old. Routine annual screening examination. PERTINENT HISTORY: Non-contributory. History of prior bilateral breast reduction surgery. TECHNIQUE: Digital bilateral breast lara (3D mammographic acquisition) in the CC and MLO projections. 2-D mediolateral oblique (MLO) and craniocaudad (CC) views of both breasts were obtained. CAD: Full Field Digital Mammography with Computer Added Detection was performed. COMPARISON: Comparison is made with prior study December 01, 2019 and December 22, 2017. FINDINGS: Breast Composition: There are scattered areas of fibroglandular density. There are no dominant masses or suspicious calcifications. Stable postsurgical changes seen in the retroareolar region of the right breast and compared with prior surgery. This is unchanged. No other significant abnormalities are identified. There has been no significant change since the prior study. BI/SCRN MAMM (CAD)W/LARA BILAT IMPRESSION: Stable bilateral screening mammogram. Yearly follow-up mammogram recommended. (A) ASSESSMENT CATEGORY: BIRADS Category 2: Benign. A letter regarding these results will be sent to the patient by the facility within 30 days. Approximately 10% of breast cancers are not detected by mammography. A normal mammogram should not delay biopsy of a clinically suspicious abnormality. [id number] Electronically Signed: Louis Samuel MD at 16:20 EDT ,
== END | disposition home or self-care (01) ==
LOC: OPBD 14:43
PROVIDERS: PCP Family Medicine; Referring Provider Family Medicine; Visit Provider Family Medicine
DX: Z00.00 Encounter for general adult medical examination without abnormal findings (principal); Z12.31 Encounter for screening mammogram for malignant neoplasm of breast; M85.859 Other specified disorders of bone density and structure, unspecified thigh; M85.89 Other specified disorders of bone density and structure, multiple sites
CPT/HCPCS: 77063; 77067; 77080

== ENCOUNTER → 2024-09-06 | Outpatient (CLI) | payer MEDICARE, OTHER, SELFPAY ==
[2024-09-06 10:26] LABS: Absolute Lymphocyte Count 2.86 X10^3/uL (0.83-4.51); Absolute Neutrophil Count 3.8 X10^3/uL (2.0-7.7); Basophil# 0.05 X10^3/uL; Basophil% 0.7 % (0-1); Eosinophil# 0.19 X10^3/uL; Eosinophils% 2.6 % (0-5); Hematocrit 44.8 % (37-47); Hemoglobin 14.9 g/dL (12.0-15.0); Lymphocyte # 2.86 X10^3/ul (0.83-4.51); Lymphocyte % 38.5 % (19-41); Mean Corp Hgb Conc 33.3 g/dL (32-36); Mean Corpuscular Hgb 29.3 pg (27.0-32.0); Mean Platelet Vol. 10.9 fl (6.2-12.0); Monocyte# 0.48 X10^3/uL; Monocyte% 6.5 % (0-10); NRBC Flagged by Analyzer 0 % (0-5); Neutrophil # 3.82 X10^3/uL (2.7-7.7); Neutrophil % 51.4 % (47-70); Platelet Count 220 K/mm3 (150-450); RBC Distribution Width CV 14.1 % (11.6-14.6); RBC Distribution Width SD 45.3 fl (35.1-43.9); Red Blood Count 5.09 M/mm3 (4.2-5.4); White Blood Count 7.4 K/mm3 (4.4-11.0)
[2024-09-06 10:54] LABS: ALB/GLOB Ratio 1.6 RATIO (0.9-2.4); AST(SGOT) 22 U/L (<=31); Alanine Aminotransfer ALT/SGPT 17 U/L (<=34); Albumin, Serum 4.3 g/dL (3.4-4.8); Alkaline Phosphatase 67 U/L (35-104); Anion Gap 13 (5-15); BUN 12 mg/dL (4-19); BUN/Creat Ratio 13.7 RATIO (10-20); Calcium 9.3 mg/dL (7.6-11.0); Carbon Dioxide 24.2 mmol/L (22.0-29.0); Chloride 102 mmol/L (96-108); Creatinine, Serum 0.8 mg/dL (0.6-1.0); EST Glomerular Filtration Rate 68 (>60); Globulin 2.8 g/dL (2.2-4.2); Glucose 86 mg/dL (70-99); Potassium 3.7 mmol/L (3.3-5.1); Protein, Total 7.1 g/dL (5.9-8.4); Sodium Level 139 mmol/L (133-145); Total Bilirubin 1.09 mg/dL (0.00-1.30)
[2024-09-08 02:21] LABS: Microalbumin,Random Urine 46.7 mg/L (NO RANGE EST.); Microalbumin:Creatinine Ratio 392.4 mg/g CRE
== END | disposition home or self-care (01) ==
LOC: MFPLAB 08:32
PROVIDERS: PCP Family Medicine; Referring Provider Family Medicine; Visit Provider Family Medicine
DX: I47.19 Other supraventricular tachycardia (principal); I10 Essential (primary) hypertension
CPT/HCPCS: 36415; 80053; 82043; 82570; 85025

== ENCOUNTER → 2025-02-05 | Outpatient (CLI) | payer MEDICARE, OTHER, SELFPAY ==
[2025-02-05 15:43] LABS: Hematocrit 44.2 % (37-47); Hemoglobin 14.6 g/dL (12.0-15.0); Immature Granulocytes Count 0.010 X10^3/uL (0.0-0.0); Mean Corp Hgb Conc 33.0 g/dL (32-36); Mean Corpuscular Volume 88.2 fL (81-99); Mean Platelet Vol. 11.2 fl (6.2-12.0); NRBC Flagged by Analyzer 0 % (0-5); Platelet Count 212 K/mm3 (150-450); RBC Distribution Width CV 14.3 % (11.6-14.6); RBC Distribution Width SD 45.9 fl (35.1-43.9); Red Blood Count 5.01 M/mm3 (4.2-5.4); White Blood Count 7.4 K/mm3 (4.4-11.0)
[2025-02-05 16:04] LABS: Microalbumin,Random Urine < 12.0 mg/L (<20 mg/L)
[2025-02-05 16:16] LABS: AST(SGOT) 22 U/L (<=31); Alanine Aminotransfer ALT/SGPT 20 U/L (<=34); Albumin, Serum 4.4 g/dL (3.4-4.8); Alkaline Phosphatase 68 U/L (35-104); Anion Gap 13 (5-15); BUN 13 mg/dL (4-19); BUN/Creat Ratio 14.5 RATIO (10-20); Calcium,Total 9.8 mg/dL (7.6-11.0); Carbon Dioxide 24.4 mmol/L (21.0-32.0); Chloride 102 mmol/L (98-108); Cholesterol 172 mg/dL (<=200); Globulin 2.8 g/dL (2.2-4.2); Glucose 87 mg/dL (70-99); Low Density Lipoprotein Calc. 85 mg/dL; Potassium 4.3 mmol/L (3.3-5.1); Triglycerides 121 mg/dL; Very Low Density Lipoprotein 24 mg/dL (5-40); cholesterol:hdl ratio screen 2.74
[2025-02-05 17:30] LABS: PTHIN 51 pg/mL (11-61)
== END | disposition home or self-care (01) ==
LOC: MTLAB 12:46
PROVIDERS: PCP Family Medicine; Referring Provider Family Medicine; Visit Provider Family Medicine
DX: I10 Essential (primary) hypertension (principal); E78.5 Hyperlipidemia, unspecified; M85.80 Other specified disorders of bone density and structure, unspecified site
CPT/HCPCS: 36415; 80053; 80061; 82043; 83970; 84443; 85025

== ENCOUNTER → 2025-02-13 | Outpatient (CLI) | payer OTHER, MEDICARE, SELFPAY ==
--- OUTSIDE RECORDS SUMMARY | 2025-02-13 18:44 | XMS RPT_ITS | CCD ---
Author Organization [facility] Care Team Providers Care [employer] Science Taxonomist Name Role Phone Josse Almazan (Historical) Primary Care Prov ider Kevin Sanderson MD, Dr. Krause Primary Care Provider Kin CEDENO, Dr. Krause Attending Provider Dr. Jimi Sanderson MD Referring Provider Jimi Sanderson Referring Unavailable Jimi Sanderson Attending Jimi Chambers Primary Care Unavailable Jimi Sanderson Referring Unavailable Jimi Sanderson Attending Jimi Chambers Primary Care Unavailable Kin CEDENO, Dr. Krause Primary Care Provider Kin CEDENO, Dr. Krause Attending Provider Dr. Jimi Sanderson MD Referring Provider Brent Mccracken Attending Provider [phone] Medications Current Medications Medication Drug Class(es) Dates Sig (Normalized) Sig (Original) losartan potassium 50 mg oral tablet (7 sources) Angiotensin 2 Receptor Pippa Start: 02-13-2025 take 1 tablet by mouth once daily Losartan 50 mg tablet Active 50 mg PO daily February 13, 2025 12:00am Start: 10-29-2013 End: 02-13-2025 Losartan 25 MG tablet Discon tinued 12.5 mg PO DAILY October 29, 2013 12:00am February 13, 2025 10:35am Start: 10-29-2013 take 12.5 mg by mout h once daily Losartan Active 12.5 MG PO DAILY October 28, 2013 11:00pm lovastatin 40 mg oral tablet (6 sources) HMG-CoA Reductase Inhibitor Start: 10-29-2013 take 1 tablet by mouth once daily Lovastatin (Mevacor) 40 MG tablet Active 40 mg PO DAILY October 29, 2013 12:00am nitrofurantoin, macrocrystals 25 mg / nitrofurantoin, monohydrate 75 mg oral capsule (1 source) Nitrofuran Antibacterial Start: 02-13-2025 take 1 capsule by mouth every twelve hours at mealtime Nitrofurantoin Monohyd/M-Cryst (Macrobid) 100 mg capsule Active 100 mg PO Q12H 10 5 0 February 13, 2025 12:00am February 17, 2025 12:00am must administer with a meal/food 24 hr verapamil hydrochloride 120 mg extended release oral capsule (1 source) Calcium Channel Pippa Start: 02-13-2025 take 1 capsule by mouth once daily Verapamil 120 mg capsule,ext rel. pellets 24 hr Active 120 mg PO daily February 13, 2025 12:00am Completed/Discontinued Medications Medication Drug Class(es) Dates Sig (Normalized) Sig (Original) aspirin 81 mg chewable tablet (6 sources) Platelet Aggregation Inhibitor, Nonsteroidal Anti-inflammatory Drug Start: 10-29-2013 End: 02-13-2025 take 1 tablet by mouth once daily Aspirin 81 MG tablet,chewable Discontinued 81 mg PO DAILY@0800 October 29, 2013 12:00am February 13, 2025 10:49am ciprofloxacin 500 mg oral tablet (6 sources) Quinolone Antimicrobial Start: 10-31-2013 End: 02-13-2025 take 1 tablet by mouth twice daily Ciprofloxacin Hcl 500 MG tablet Discontinued 500 mg PO TWICE A DAY 14 0 October 31, 2013 12:00am February 13, 2025 10:35am metroNIDAZOLE 500 mg oral tablet (6 sources) Nitroimidazole Antimicrobial Start: 10-31-2013 End: 02-13-2025 take 1 tablet by mouth every eight hours Metronidazole 500 MG tablet Discontinued 500 mg PO Q8H 21 0 October 31, 2013 12:00am February 13, 2025 10:36am ondansetron 8 mg oral tablet (6 sources) Serotonin-3 Receptor Antagonist Start: 10-31-2013 End: 02-13-2025 take 1 tablet by mouth every eight hours as needed for nausea Ondansetron Hcl 8 MG tablet Discontinued 8 mg PO EVERY 8 HOURS NEEDED as needed for nausea, vomiting 14 0 October 31, 2013 12:00am February 13, 2025 10:35am Problems Problem Classification Problem Date Documented Date Episodic/Chronic Disorders of lipid metabolism (7 sources) Dyslipidemia; Translations: [Hyperlipidemia, unspecified] Onset: 02-05-2025 10-29-2013 Chronic Diverticulosis and diverticulitis (6 sources) Diverticulitis of colon; Translations: [Diverticulitis of large intestine without perforation or abscess without bleeding] 10-29-2013 Chronic Essential hypertension (7 sources) Hypertensive disorder; Translations: [Essential (primary) hypertension] Onset: 02-05-2025 10-29-2013 Chronic Other bone disease and musculoskeletal deformities (1 source) Other specified disorders of bone density and structure, unspecified site; Translations: [Other specified disorders of bone density and structure, unspecified site] Onset: 02-05-2025 Episodic Unclassified (1 source) Other supraventricular tachycardia; Translations: [Other supraventricular tachycardia] Onset: 09-20-2024 Results Test Name Value Interpretation Reference Range Facility Absolute lymphocyte countOrd ered By: Jimi Sanderson on 02-05-2025 Lymphocytes Auto (Unsp spec) [#/Vol] 2.83 10*3/uL 0.83-4.51 [facility] Absolute neutrophil countOrd ered By: Jimi Sanderson on 02-05-2025 Neutrophils (Bld) [#/Vol] 3.8 10*3/uL 2.0-7.7 [facility] Anion gap in Serum or Plasma Ordered By: Jimi Sanderson on 02-05-2025 Anion gap [Moles/Vol] 13 mmol/L 5-15 [facility] Automated lymphocyte count a s percentage of total leukocytesOrdered By: Jimi Sanderson on 02-05-2025 Lymphocytes/100 WBC Auto (Unsp spec) 38.3 % 19- [facility] BUN/creatinine ratioOrdered By: Jimi Sanderson on 02-05-2025 Urea nitrogen/Creatinine [Mass ratio] 14.5 mg/mg 10- [facility] Basophil percentageOrdered B y: Jimi Sanderson on 02-05-2025 Basophils/100 WBC (Bld) 0.5 % 0-[address] [facility] Bilirubin, totalOrdered By: Jimi Sanderson on 02-05-2025 Bilirubin [Mass/Vol] 1.17 mg/dL 0.00-1.30 [facility] CBC W/Diff, Automatedon 01-10 Absolute Lymph 2.83 X10 3/uL Normal 0.83-4.51 [facility] Comment on above: Order Comment: Order Date: 02/05/25 Order Info: [id number] - CBCD Performed By: #### L 500.4100, L500.4050, L100.0100, L501.9520, L502.0500, L509.1000 #### [facility] [address] [facility] [place], [address] Absolute Neut 3.8 X10 3/uL Normal 2.0-7.7 [facility] Comment on above: Order Comment: Order Date: 02/05/25 Order Info: [id number]- - CBCD Performed By: #### L 500.4100, L500.4050, L100.0100, L501.9520, L502.0500, L509.1000 #### [facility] [address] [facility] [place], [address] Basophils/100 WBC (Bld) 0.5 % Normal 0-[address] [facility] Comment on above: Order Comment: Order Date: 02/05/25 Order Info: [id number]- - CBCD Performed By: #### L 500.4100, L500.4050, L100.0100, L501.9520, L502.0500, L509.1000 #### [facility] [address] [facility] [place], [address] Eosinophils/100 WBC (Bld) 2.7 % Normal 0-5 [facility] Comment on above: Order Comment: Order Date: 02/05/25 Order Info: [id number]- - CBCD Performed By: #### L 500.4100, L500.4050, L100.0100, L501.9520, L502.0500, L509.1000 #### [facility] [address] [facility] [place], [address] Erythrocyte distribution width (RBC) [Ratio] 14.3 % Normal 11.6-14.6 [facility] Comment on above: Order Comment: Order Date: 02/05/25 Order Info: [id number]- - CBCD Performed By: #### L 500.4100, L500.4050, L100.0100, L501.9520, L502.0500, L509.1000 #### [facility] [address] [place], [address] Hematocrit (Bld) [Volume fraction] 44.2 % Normal 37-47 [facility] Comment on above: Order Comment: Order Date: 02/05/25 Order Info: [id number] - CBCD Performed By: #### L 500.4100, L500.4050, L100.0100, L501.9520, L502.0500, L509.1000 #### [facility] [address] [place], [address] Hemoglobin (Bld) [Mass/Vol] 14.6 g/dL Normal 12.0-15.0 [facility] Comment on above: Order Comment: Order Date: 02/05/25 Order Info: [id number] - CBCD Performed By: #### L 500.4100, L500.4050, L100.0100, L501.9520, L502.0500, L509.1000 #### [facility] [address] [place], [address] IG% 0.100 Normal 0.0-0.9 [facility] Comment on above: Order Comment: Order Date: 02/05/25 Order Info: [id number] - CBCD Result Comment: IG% - Immature Granulocytes (promyelocytes, myelocytes and metamyelocytes) > 1% indicates that a LEFT SHIFT is Present. Performed By: #### L 500.4100, L500.4050, L100.0100, L501.9520, L502.0500, L509.1000 #### [facility] [address] [place], [address] Lymphocytes/100 WBC (Bld) 38.3 % Normal 19-41 [facility] Comment on above: Order Comment: Order Date: 02/05/25 Order Info: [id number] - CBCD Performed By: #### L 500.4100, L500.4050, L100.0100, L501.9520, L502.0500, L509.1000 #### [facility] [address] [place], [address] MCH (RBC) [Entitic mass] 29.1 pg Normal 27.0-32.0 [facility] Comment on above: Order Comment: Order Date: 02/05/25 Order Info: [id number] - CBCD Performed By: #### L 500.4100, L500.4050, L100.0100, L501.9520, L502.0500, L509.1000 #### [facility] [address] [place], [address] MCHC (RBC) [Mass/Vol] 33.0 g/dL Normal 32-36 [facility] Comment on above: Order Comment: Order Date: 02/05/25 Order Info: [id number] - CBCD Performed By: #### L 500.4100, L500.4050, L100.0100, L501.9520, L502.0500, L509.1000 #### [facility] [address] [place], [address] MCV (RBC) [Entitic vol] 88.2 fL Normal 81-[address] [facility] Comment on above: Order Comment: Order Date: 02/05/25 Order Info: [id number] - CBCD Performed By: #### L 500.4100, L500.4050, L100.0100, L501.9520, L502.0500, L509.1000 #### [facility] [address] [place], [address] Monocytes/100 WBC (Bld) 6.5 % Normal 0-10 [facility] Comment on above: Order Comment: Order Date: 02/05/25 Order Info: [id number] - CBCD Performed By: #### L 500.4100, L500.4050, L100.0100, L501.9520, L502.0500, L509.1000 #### [facility] [address] [place], [address] Neutrophils/100 WBC (Bld) 51.9 % Normal 47-70 [facility] Comment on above: Order Comment: Order Date: 02/05/25 Order Info: [id number]- - CBCD Performed By: #### L 500.4100, L500.4050, L100.0100, L501.9520, L502.0500, L509.1000 #### [facility] [address] [place], [address] Nucleated RBC (Bld) [#/Vol] 0 10*3/uL Normal 0-5 [facility] Comment on above: Order Comment: Order Date: 02/05/25 Order Info: [id number]- - CBCD Performed By: #### L 500.4100, L500.4050, L100.0100, L501.9520, L502.0500, L509.1000 #### [facility] [address] [place], [address] Platelet mean volume (Bld) [Entitic vol] 11.2 fL Normal 6.2-12.0 [facility] Comment on above: Order Comment: Order Date: 02/05/25 Order Info: [id number]- - CBCD Performed By: #### L 500.4100, L500.4050, L100.0100, L501.9520, L502.0500, L509.1000 #### [facility] [address] [place], [address] Platelets (Bld) [#/Vol] 212 10*3/uL Normal 150-450 [facility] Comment on above: Order Comment: Order Date: 02/05/25 Order Info: [id number]- - CBCD Performed By: #### L 500.4100, L500.4050, L100.0100, L501.9520, L502.0500, L509.1000 #### [facility] [address] [place], [address] RBC (Bld) [#/Vol] 5.01 10*6/uL Normal 4.2-5.4 [facility] Comment on above: Order Comment: Order Date: 02/05/25 Order Info: [id number] - CBCD Performed By: #### L 500.4100, L500.4050, L100.0100, L501.9520, L502.0500, L509.1000 #### [facility] [address] [place], [address] RDW SD 45.9 fl High 35.1-43.9 [facility] Comment on above: Order Comment: Order Date: 02/05/25 Order Info: [id number]- - CBCD Performed By: #### L 500.4100, L500.4050, L100.0100, L501.9520, L502.0500, L509.1000 #### [facility] [address] [place], [address] WBC (Bld) [#/Vol] 7.4 10*3/uL Normal 4.4-11.[address] [facility] Comment on above: Order Comment: Order Date: 02/05/25 Order Info: [id number] - CBCD Performed By: #### L 500.4100, L500.4050, L100.0100, L501.9520, L502.0500, L509.1000 #### [facility] [address] [place], [address] Calculated very low density lipoprotein (VLDL) cholesterol measurementOrdered By: Jimi Sanderson on 02-05-2025 Calculated very low density lipoprotein (VLDL) cholesterol measurement 24 mg/dL 5-40 [facility] Carbon dioxide, total [Moles /volume] in Central venous bloodOrdered By: Jimi Sanderson on 02-05-2025 CO2 [Moles/Vol] 24.4 mmol/L 21.0-32.0 [facility] Chloride assayOrdered By: John Sanderson on 02-05-2025 Chloride [Moles/Vol] 102 mmol/L 98-108 [facility] Comprehensive Metabolic Prof ilon 02-05-2025 Albumin [Mass/Vol] 4.4 g/dL Normal 3.4-4.[address] [facility] Comment on above: Order Comment: Order Date: 02/05/25 Order Info: [id number] - CMP Order Info: [id number] - LIPID Order Info: [id number] - TSH Performed By: #### L 500.4100, L500.4050, L100.0100, L501.9520, L502.0500, L509.1000 #### [facility] [address] [place], [address] Albumin/Globulin [Mass ratio] 1.6 {ratio} Normal 0.9-2.4 [facility] Comment on above: Order Comment: Order Date: 02/05/25 Order Info: 07 - CMP Order Info: [id number] - LIPID Order Info: [id number] - TSH Performed By: #### L 500.4100, L500.4050, L100.0100, L501.9520, L502.0500, L509.1000 #### [facility] [address] [place], [address] ALK PHOS 68 U/L Normal 35-104 [facility] Comment on above: Order Comment: Order Date: 02/05/25 Order Info: [id number]- - CMP Order Info: [id number] - LIPID Order Info: [id number] - TSH Performed By: #### L 500.4100, L500.4050, L100.0100, L501.9520, L502.0500, L509.1000 #### [facility] [address] [place], [address] ALT [Catalytic activity/Vol] 20 U/L Normal <=34 [facility] Comment on above: Order Comment: Order Date: 02/05/25 Order Info: [id number]- - CMP Order Info: - LIPID Order Info: [id number] - TSH Performed By: #### L 500.4100, L500.4050, L100.0100, L501.9520, L502.0500, L509.1000 #### [facility] [address] [place], [address] AST [Catalytic activity/Vol] 22 U/L Normal <=31 [facility] Comment on above: Order Comment: Order Date: 02/05/25 Order Info: [id number] - CMP Order Info: - LIPID Order Info: [id number] - TSH Performed By: #### L 500.4100, L500.4050, L100.0100, L501.9520, L502.0500, L509.1000 #### [facility] [address] [place], [address] Bilirubin [Mass/Vol] 1.17 mg/dL Normal 0.00-1.30 [facility] Comment on above: Order Comment: Order Date: 02/05/25 Order Info: [id number] - CMP Order Info: - LIPID Order Info: [id number] - TSH Performed By: #### L 500.4100, L500.4050, L100.0100, L501.9520, L502.0500, L509.1000 #### [facility] [address] [place], [address] BUN/CRE 14.5 RATIO Normal 10-20 [facility] Comment on above: Order Comment: Order Date: 02/05/25 Order Info: [id number] - CMP Order Info: - LIPID Order Info: [id number] - TSH Performed By: #### L 500.4100, L500.4050, L100.0100, L501.9520, L502.0500, L509.1000 #### [facility] [address] [place], [address] Calcium [Mass/Vol] 9.8 mg/dL Normal 7.6-11.[address] [facility] Comment on above: Order Comment: Order Date: 02/05/25 Order Info: [id number] - CMP Order Info: - LIPID Order Info: [id number] - TSH Performed By: #### L 500.4100, L500.4050, L100.0100, L501.9520, L502.0500, L509.1000 #### [facility] [address] [place], [address] Chloride [Moles/Vol] 102 mmol/L Normal 98-108 [facility] Comment on above: Order Comment: Order Date: 02/05/25 Order Info: [id number] - CMP Order Info: - LIPID Order Info: [id number] - TSH Performed By: #### L 500.4100, L500.4050, L100.0100, L501.9520, L502.0500, L509.1000 #### [facility] [address] [place], [address] CO2 [Moles/Vol] 24.4 mmol/L Normal 21.0-32.0 [facility] Comment on above: Order Comment: Order Date: 02/05/25 Order Info: [id number] - CMP Order Info: [id number] - LIPID Order Info: [id number] - TSH Performed By: #### L 500.4100, L500.4050, L100.0100, L501.9520, L502.0500, L509.1000 #### [facility] [address] [place], [address] Creatinine [Mass/Vol] 0.93 mg/dL Normal 0.70-1.20 [facility] Comment on above: Order Comment: Order Date: 02/05/25 Order Info: [id number] - CMP Order Info: [id number] - LIPID Order Info: [id number] - TSH Performed By: #### L 500.4100, L500.4050, L100.0100, L501.9520, L502.0500, L509.1000 #### [facility] [address] [place], [address] GAP 13 Normal 5-15 [facility] Comment on above: Order Comment: Order Date: 02/05/25 Order Info: 07- - CMP Order Info: [id number] - LIPID Order Info: 3 - TSH Performed By: #### L 500.4100, L500.4050, L100.0100, L501.9520, L502.0500, L509.1000 #### [facility] [address] [place], [address] GFR/1.73 sq M.predicted among non-blacks MDRD (S/P/Bld) [Vol rate/Area] 61 mL/min/{1.73_m2} Normal >60 [facility] Comment on above: Order Comment: Order Date: 02/05/25 Order Info: [id number] - CMP Order Info: - LIPID Order Info: [id number] - TSH Result Comment: mL/m in/1.73m2 CKD-EPI Creatinine Equation (2020) Performed By: #### L 500.4100, L500.4050, L100.0100, L501.9520, L502.0500, L509.1000 #### [facility] [address] [place], [address] Globulin (S) [Mass/Vol] 2.8 g/dL Normal 2.2-4.2 [facility] Comment on above: Order Comment: Order Date: 02/05/25 Order Info: [id number] - CMP Order Info: [id number] - LIPID Order Info: 3 - TSH Performed By: #### L 500.4100, L500.4050, L100.0100, L501.9520, L502.0500, L509.1000 #### [facility] [address] [place], [address] Glucose [Mass/Vol] 87 mg/dL Normal 70-[address] [facility] Comment on above: Order Comment: Order Date: 02/05/25 Order Info: [id number] - CMP Order Info: - LIPID Order Info: 3 - TSH Performed By: #### L 500.4100, L500.4050, L100.0100, L501.9520, L502.0500, L509.1000 #### [facility] [address] [place], [address] Potassium [Moles/Vol] 4.3 mmol/L Normal 3.3-5.1 [facility] Comment on above: Order Comment: Order Date: 02/05/25 Order Info: [id number] - CMP Order Info: - LIPID Order Info: [id number] - TSH Performed By: #### L 500.4100, L500.4050, L100.0100, L501.9520, L502.0500, L509.1000 #### [facility] [address] [place], [address] Sodium [Moles/Vol] 140 mmol/L Normal 133-[address] [facility] Comment on above: Order Comment: Order Date: 02/05/25 Order Info: [id number] - CMP Order Info: - LIPID Order Info: [id number] - TSH Performed By: #### L 500.4100, L500.4050, L100.0100, L501.9520, L502.0500, L509.1000 #### [facility] [address] [place], [address] T PROT 7.2 g/dL Normal 5.9-8.4 [facility] Comment on above: Order Comment: Order Date: 02/05/25 Order Info: [id number] - CMP Order Info: - LIPID Order Info: [id number] - TSH Performed By: #### L 500.4100, L500.4050, L100.0100, L501.9520, L502.0500, L509.1000 #### [facility] [address] [place], [place], [address] Urea nitrogen [Mass/Vol] 13 mg/dL Normal 4-19 [facility] Comment on above: Order Comment: Order Date: 02/05/25 Order Info: [id number] - CMP Order Info: [id number] - LIPID Order Info: [id number] - TSH Performed By: #### L 500.4100, L500.4050, L100.0100, L501.9520, L502.0500, L509.1000 #### [facility] [address] [place], [place], [address] Eosinophil percentageOrdered By: Jimi Sanderson on 02-05-2025 Eosinophils/100 WBC (Bld) 2.7 % 0-5 [facility] Erythrocyte distribution wid th ratioOrdered By: Jimi Sanderson on 02-05-2025 Erythrocyte distribution width (RBC) [Ratio] 14.3 % 11.6-14.6 [facility] Erythrocyte distribution wid th standard deviationOrdered By: Jimi Sanderson on 02-05-2025 Erythrocyte distribution width (RBC) [Ratio] 45.9 fl High 35.1-43.9 [facility] Glomerular filtration rate ( GFR) estimation/1.73 sq m using serum, plasma, or whole bOrdered By: Jimi Sanderson on 02-05-2025 GFR/1.73 sq M.predicted among non-blacks MDRD (S/P/Bld) [Vol rate/Area] 61 mL/min/{1.73_m2} >60 [facility] Comment on above: mL/min/1.73m2 CKD-EP I Creatinine Equation (2020) Hematocrit Auto (Bld) [Volum e fraction]Ordered By: Jimi Sanderson on 02-05-2025 Hematocrit (Bld) [Volume fraction] 44.2 % 37-47 [facility] Hemoglobin measurementOrdere d By: Jimi Sanderson on 02-05-2025 Hemoglobin (Bld) [Mass/Vol] 14.6 g/dL 12.0-15.0 [facility] Immature granulocytes/100 WB C Auto (Bld)Ordered By: Jimi Sanderson on 02-05-2025 Immature granulocytes/100 WBC (Bld) 0.100 % 0.0-0.9 [facility] Comment on above: IG% - Immature Granu locytes (promyelocytes, myelocytes and metamyelocytes) > 1% indicates that a LEFT SHIFT is Present. LDL calc ser/plasOrdered By: Jimi Sanderson on 02-05-2025 Cholesterol in LDL [Mass/Vol] 85 mg/dL [facility] Comment on above: Cmfjlttmjn=884-587 m g/dL & Higher Cffm=888 mg/dL or greaterFriedwald Equation for LDL-C Laboratory - Chemistry and C hemistry - challengeOrdered By: Jimi Sanderson on 02-05-2025 AST [Catalytic activity/Vol] 22 U/L <32 [facility] Lipid Profileon 02-05-2025 CHOL:HDL 2.74 Normal [facility] Comment on above: Order Comment: Order Date: 02/05/25 Order Info: [id number] - CMP Order Info: [id number] - LIPID Order Info: [id number] - TSH Performed By: #### L 500.4100, L500.4050, L100.0100, L501.9520, L502.0500, L509.1000 #### [facility] [address] [place], [address] Cholesterol [Mass/Vol] 172 mg/dL Normal <=200 [facility] Comment on above: Order Comment: Order Date: 02/05/25 Order Info: [id number] - CMP Order Info: [id number] - LIPID Order Info: [id number] - TSH Result Comment: Chol esterol level, Desirable <200 mg/dL Borderline high cholesterol 200-239 mg/dL High cholesterol >=240 mg/dL Recommendations of the NCEP Adult Treatment Panel for the following risk-cutoff thresholds for the [place] population. Performed By: #### L 500.4100, L500.4050, L100.0100, L501.9520, L502.0500, L509.1000 #### [facility] Laboratory [address] [place], [address] Cholesterol in HDL [Mass/Vol] 63 mg/dL Normal [facility] Comment on above: Order Comment: Order Date: 02/05/25 Order Info: [id number] - CMP Order Info: [id number] - LIPID Order Info: [id number] - TSH Result Comment: Sonya onal Cholesterol Education Program (NCEP) guidelines: <40 mg/dL: Low HDL-cholesterol (major risk factor for CHD) >= 60 mg/dL: High HDL-cholesterol (negative risk factor for CHD) HDL-cholesterol is affected by a number of factors, e.g. smoking, exercise, hormones, sex and age. Performed By: #### L 500.4100, L500.4050, L100.0100, L501.9520, L502.0500, L509.1000 #### [facility] Laboratory [address] [place], [address] Cholesterol in LDL [Mass/Vol] 85 mg/dL Normal [facility] Comment on above: Order Comment: Order Date: 02/05/25 Order Info: [id number] - CMP Order Info: [id number] - LIPID Order Info: [id number] - TSH Result Comment: Bord lrqzmq=600-636 mg/dL Higher Ngut=933 mg/dL or greater Friedwald Equation for LDL-C Performed By: #### L 500.4100, L500.4050, L100.0100, L501.9520, L502.0500, L509.1000 #### [facility] Laboratory [address] [place], [place], [id number] ([phone]) Cholesterol in VLDL [Mass/Vol] 24 mg/dL Normal 5-40 [facility] Comment on above: Order Comment: Order Date: 02/05/25 Order Info: [id number] - CMP Order Info: [id number] - LIPID Order Info: [id number] - TSH Performed By: #### L 500.4100, L500.4050, L100.0100, L501.9520, L502.0500, L509.1000 #### [facility] Laboratory [address] [place], [place], [id number] Triglyceride [Mass/Vol] 121 mg/dL Normal [facility] Comment on above: Order Comment: Order Date: 02/05/25 Order Info: [id number] - CMP Order Info: [id number] - LIPID Order Info: [id number] - TSH Result Comment: The drugs N-Acetylcysteine and Metamizole may falsely depress this assay. Normal range: <150 mg/dL Borderline High: 150-199 mg/dL High: 200-499 mg/dL Very High: >500 mg/dL Performed By: #### L 500.4100, L500.4050, L100.0100, L501.9520, L502.0500, L509.1000 #### [facility] Laboratory [address] [place], [place], [id number] MCV (mean corpuscular volume ) determinationOrdered By: Jimi Sanderson on 02-05-2025 MCV (RBC) [Entitic vol] 88.2 fL 81-99 [facility] Mean corpuscular hemoglobin (MCH) determinationOrdered By: Jimi Sanderson on 02-05-2025 MCH (RBC) [Entitic mass] 29.1 pg 27.0-32.0 [facility] Mean corpuscular hemoglobin concentration (MCHC) determinationOrdered By: Jimi Sanderson on 02-05-2025 MCHC (RBC) [Mass/Vol] 33.0 g/dL 32-36 [facility] Mean platelet volume determi nationOrdered By: Jimi Sanderson on 02-05-2025 Platelet mean volume (Bld) [Entitic vol] 11.2 fL 6.2-12.0 [facility] Microalb:Creat Ratio,Random URon 02-05-2025 MALB:CREAT 39.2 mg/g CRE High <30 mg/g CRE [facility] Comment on above: Order Comment: Order Date: 07/31/24 Order Info: [id number] - MIACRE Result Comment: AMENDED REPORT 02/05/252000 MALB:CREAT previously reported as: 392.4 mg/g CRE Performed By: #### L 500.4050, L100.0100, L502.0250 #### [facility] Laboratory [address] [place], [place], [id number] Microalbumin,Random Urineon 02-05-2025 MICROALBUMIN,UR < 12.0 Normal <20 mg/L [facility] Comment on above: Order Comment: Order Date: 02/05/25 Order Info: [id number] - MIALB Performed By: #### L 500.4100, L500.4050, L100.0100, L501.9520, L502.0500, L509.1000 #### [facility] Laboratory [address] [place], [place], [id number] Monocyte percentageOrdered B y: Jimi Sanderson on 02-05-2025 Monocytes/100 WBC (Bld) 6.5 % 0-[address] [facility] Neutrophil percentageOrdered By: Jimi Sanderson on 02-05-2025 Neutrophils/100 WBC (Bld) 51.9 % 47-70 [facility] Nucleated red blood cell per centageOrdered By: Jimi Sanderson on 02-05-2025 Nucleated RBC/100 WBC (Bld) [Ratio] 0 % 0-5 [facility] PTHINon 02-05-2025 PTH 51 pg/mL Normal 11-61 [facility] Comment on above: Order Comment: Order Date: 02/05/25 Order Info: [id number] - PTHIN Performed By: #### L 500.4100, L500.4050, L100.0100, L501.9520, L502.0500, L509.1000 #### [facility] Laboratory [address] [place], [place], [address] Platelet countOrdered By: John Sanderson on 02-05-2025 Platelets (Bld) [#/Vol] 212 10*3/uL 150-450 [facility] Potassium measurement (mass/ volume)Ordered By: Jimi Sanderson on 02-05-2025 Potassium (Unsp spec) [Mass/Vol] 4.3 mmol/L 3.3-5.1 [facility] RBC Auto (Bld) [#/Vol]Ordere d By: Jimi Sanderson on 02-05-2025 RBC (Bld) [#/Vol] 5.01 10*6/uL 4.2-5.4 [facility] Screening total cholesterol/ high density lipoprotein (HDL) cholesterol ratioOrdered By: Jimi Sanderson on 02-05-2025 Cholesterol.total/Choles terol in HDL [Mass ratio] 2.74 {ratio} [facility] Serum creatinine measurement (mass/volume)Ordered By: Jimi Sanderson on 02-05-2025 Creatinine [Mass/Vol] 0.93 mg/dL 0.70-1.20 [facility] Serum globulin measurementOr dered By: Jimi Sanderson on 02-05-2025 Globulin (S) [Mass/Vol] 2.8 g/dL 2.2-4.[address] [facility] Serum glucose measurement (m ass/volume)Ordered By: Jimi Sanderson on 02-05-2025 Glucose [Mass/Vol] 87 mg/dL 70-[address] [facility] Serum or plasma alanine reeder otransferase (ALT) measurementOrdered By: iJmi Sanderson on 02-05-2025 ALT [Catalytic activity/Vol] 20 U/L <35 [facility] Serum or plasma albumin ramon urement (mass/volume)Ordered By: Jimi Sanderson on 02-05-2025 Albumin [Mass/Vol] 4.4 g/dL 3.4-4.[address] [facility] Serum or plasma albumin/glob ulin mass ratioOrdered By: Jimi Sanderson on 02-05-2025 Albumin/Globulin [Mass ratio] 1.6 {ratio} 0.9-2.4 [facility] Serum or plasma alkaline ashli sphatase measurementOrdered By: Jimi Sanderson on 02-05-2025 ALP [Catalytic activity/Vol] 68 U/L 35-104 [facility] Serum or plasma calcium ramon urement (mass/volume)Ordered By: Jimi Sanderson on 02-05-2025 Calcium [Mass/Vol] 9.8 mg/dL 7.6-11.[address] [facility] Serum or plasma cholesterol in HDL measurement (mass/volume)Ordered By: Jimi Sanderson on 02-05-2025 Cholesterol in HDL [Mass/Vol] 63 mg/dL >40 [facility] Comment on above: National Cholesterol Education Program (NCEP) guidelines:<40 mg/dL: Low HDL-cholesterol (major risk factor for CHD)>= 60 mg/dL: High HDL-cholesterol (negative risk factor for CHD)HDL-cholesterol is affected by a number of factors, e.g. smoking, exercise, hormones, sex and age. Serum or plasma cholesterol measurement (mass/volume)Ordered By: Jimi Sanderson on 02-05-2025 Cholesterol [Mass/Vol] 172 mg/dL <201 [facility] Comment on above: Cholesterol level, D esirable <200 mg/dLBorderline high cholesterol 200-239 mg/dLHigh cholesterol >=240 mg/dLRecommendations of the NCEP Adult Treatment Panel for the following risk-cutoff thresholds for the [place] Citizen [place] population. Serum or plasma urea nitroge n measurement (mass/volume)Ordered By: Jimi Sanderson on 02-05-2025 Urea nitrogen [Mass/Vol] 13 mg/dL 4-19 [facility] Sodium levelOrdered By: Jimi Sanderson on 02-05-2025 Sodium [Moles/Vol] 140 mmol/L 133-[address] [facility] TSH DL <= 0.005 mIU/L QnOrde red By: Jimi Sanderson on 02-05-2025 TSH Qn 3.280 uIU/mL 0.300-4.200 [facility] Thyroid Stim Hormone (TSH)on 02-05-2025 TSH 3.280 uIU/mL Normal 0.300-4.200 [facility] Comment on above: Order Comment: Order Date: 02/05/25 Order Info: [id number] - CMP Order Info: [id number] - LIPID Order Info: [id number] - TSH Performed By: #### L 500.4100, L500.4050, L100.0100, L501.9520, L502.0500, L509.1000 #### [facility] Laboratory [address] [place], [address] Total proteinOrdered By: Jazmyne Sanderson on 02-05-2025 Protein [Mass/Vol] 7.2 g/dL 5.9-8.[address] [facility] Triglycerides measurementOrd ered By: Jimi Sanderson on 02-05-2025 Triglyceride [Mass/Vol] 121 mg/dL <[address] [facility] Comment on above: The drugs N-Acetylcy steine and Metamizole may falsely depress this assay. Normal range: <150 mg/dLBorderline High: 150-199 mg/dLHigh: 200-499 mg/dLVery High: >500 mg/dL Urine albumin measurement wi th detection limit of 20 mg/L or less (mass/volume)Ordered By: Jimi Sanderson on 02-05-2025 Albumin DL <= 20 mg/L (U) [Mass/Vol] < 12.0 mg/L <20 mg/L [facility] White blood cell (WBC) count Ordered By: Jimi Sanderson on 02-05-2025 WBC (Bld) [#/Vol] 7.4 10*3/uL 4.4-11.[address] [facility] Absolute neutrophil countOrd ered By: Jimi Snaderson on 09-06-2024 Neutrophils (Bld) [#/Vol] 3.8 10*3/uL 2.0-7.7 [facility] Albumin DL <= 20 mg/L (U) [M ass/Vol]Ordered By: Jimi Sanderson on 09-06-2024 Urine Random Microalbumin 46.7 mg/L NO RANGE EST. [facility] BUN/creatinine ratioOrdered By: Jimi Sanderson on 09-06-2024 Urea nitrogen/Creatinine [Mass ratio] 13.7 mg/mg 10-20 [facility] Basophil percentageOrdered B y: Jimi Sanderson on 09-06-2024 Basophils/100 WBC (Bld) 0.7 % 0-[address] [facility] Bilirubin, totalOrdered By: Jimi Sanderson on 09-06-2024 Bilirubin [Mass/Vol] 1.09 mg/dL 0.00-1.30 [facility] CBC W/Diff, Automatedon 08-13 Absolute Lymph 2.86 X10 3/uL Normal 0.83-4.51 [facility] Comment on above: Order Comment: Order Date: 07/31/24 Order Info: [id number] - CBCD Performed By: #### L 500.4050, L100.0100, L502.0250 #### [facility] [address] [place], [address] Absolute Neut 3.8 X10 3/uL Normal 2.0-7.7 [facility] Comment on above: Order Comment: Order Date: 07/31/24 Order Info: [id number] - CBCD Performed By: #### L 500.4050, L100.0100, L502.0250 #### [facility] Laboratory [address] [place], [address] Basophils/100 WBC (Bld) 0.7 % Normal 0-[address] [facility] Comment on above: Order Comment: Order Date: 07/31/24 Order Info: [id number] - CBCD Performed By: #### L 500.4050, L100.0100, L502.0250 #### [facility] Laboratory [address] [place], [address] Eosinophils/100 WBC (Bld) 2.6 % Normal 0-5 [facility] Comment on above: Order Comment: Order Date: 07/31/24 Order Info: [id number] - CBCD Performed By: #### L 500.4050, L100.0100, L502.0250 #### [facility] Laboratory [address] [place], [address] Erythrocyte distribution width (RBC) [Ratio] 14.1 % Normal 11.6-14.6 [facility] Comment on above: Order Comment: Order Date: 07/31/24 Order Info: [id number] - CBCD Performed By: #### L 500.4050, L100.0100, L502.0250 #### [facility] Laboratory [address] [place], [address] Hematocrit (Bld) [Volume fraction] 44.8 % Normal 37-47 [facility] Comment on above: Order Comment: Order Date: 07/31/24 Order Info: 0184-1 - CBCD Performed By: #### L 500.4050, L100.0100, L502.0250 #### [facility] Laboratory [address] [place], [address] Hemoglobin (Bld) [Mass/Vol] 14.9 g/dL Normal 12.0-15.0 [facility] Comment on above: Order Comment: Order Date: 07/31/24 Order Info: 0184-1 - CBCD Performed By: #### L 500.4050, L100.0100, L502.0250 #### [facility] Laboratory [address] [place], [address] IG% 0.300 Normal 0.0-0.9 [facility] Comment on above: Order Comment: Order Date: 07/31/24 Order Info: [id number]- - CBCD Result Comment: IG% - Immature Granulocytes (promyelocytes, myelocytes and metamyelocytes) > 1% indicates that a LEFT SHIFT is Present. Performed By: #### L 500.4050, L100.0100, L502.0250 #### [facility] Laboratory [address] [place], [address] Lymphocytes/100 WBC (Bld) 38.5 % Normal 19-41 [facility] Comment on above: Order Comment: Order Date: 07/31/24 Order Info: [id number]- - CBCD Performed By: #### L 500.4050, L100.0100, L502.0250 #### [facility] Laboratory [address] [place], [address] MCH (RBC) [Entitic mass] 29.3 pg Normal 27.0-32.0 [facility] Comment on above: Order Comment: Order Date: 07/31/24 Order Info: [id number]- - CBCD Performed By: #### L 500.4050, L100.0100, L502.0250 #### [facility] Laboratory [address] [place], [address] MCHC (RBC) [Mass/Vol] 33.3 g/dL Normal 32-36 [facility] Comment on above: Order Comment: Order Date: 07/31/24 Order Info: 0184-1 - CBCD Performed By: #### L 500.4050, L100.0100, L502.0250 #### [facility] Laboratory [address] [place], [address] MCV (RBC) [Entitic vol] 88.0 fL Normal 81-[address] [facility] Comment on above: Order Comment: Order Date: 07/31/24 Order Info: 0184-1 - CBCD Performed By: #### L 500.4050, L100.0100, L502.0250 #### [facility] Laboratory [address] [place], [address] Monocytes/100 WBC (Bld) 6.5 % Normal 0-10 [facility] Comment on above: Order Comment: Order Date: 07/31/24 Order Info: 0184-1 - CBCD Performed By: #### L 500.4050, L100.0100, L502.0250 #### [facility] Laboratory [address] [place], [address] Neutrophils/100 WBC (Bld) 51.4 % Normal 47-70 [facility] Comment on above: Order Comment: Order Date: 07/31/24 Order Info: 0184-1 - CBCD Performed By: #### L 500.4050, L100.0100, L502.0250 #### [facility] Laboratory [address] [place], [address] Nucleated RBC (Bld) [#/Vol] 0 10*3/uL Normal 0-5 [facility] Comment on above: Order Comment: Order Date: 07/31/24 Order Info: 0184-1 - CBCD Performed By: #### L 500.4050, L100.0100, L502.0250 #### [facility] Laboratory [address] [place], [address] Platelet mean volume (Bld) [Entitic vol] 10.9 fL Normal 6.2-12.0 [facility] Comment on above: Order Comment: Order Date: 07/31/24 Order Info: 0184-1 - CBCD Performed By: #### L 500.4050, L100.0100, L502.0250 #### [facility] Laboratory [address] [place], [address] Platelets (Bld) [#/Vol] 220 10*3/uL Normal 150-450 [facility] Comment on above: Order Comment: Order Date: 07/31/24 Order Info: 0184-1 - CBCD Performed By: #### L 500.4050, L100.0100, L502.0250 #### [facility] Laboratory [address] [place], [address] RBC (Bld) [#/Vol] 5.09 10*6/uL Normal 4.2-5.4 [facility] Comment on above: Order Comment: Order Date: 07/31/24 Order Info: 0184-1 - CBCD Performed By: #### L 500.4050, L100.0100, L502.0250 #### [facility] Laboratory [address] [place], [address] RDW SD 45.3 fl High 35.1-43.9 [facility] Comment on above: Order Comment: Order Date: 07/31/24 Order Info: 0184-1 - CBCD Performed By: #### L 500.4050, L100.0100, L502.0250 #### [facility] Laboratory [address] [place], [address] WBC (Bld) [#/Vol] 7.4 10*3/uL Normal 4.4-11.[address] [facility] Comment on above: Order Comment: Order Date: 07/31/24 Order Info: 0184-1 - CBCD Performed By: #### L 500.4050, L100.0100, L502.0250 #### [facility] Laboratory [address] [place], [address] Carbon dioxide measurementOr dered By: Jimi Sanderson on 09-06-2024 CO2 [Moles/Vol] 24.2 mmol/L 22.0-29.0 [facility] Chloride measurementOrdered By: Jimi Sanderson on 09-06-2024 Chloride [Moles/Vol] 102 mmol/L 96-108 [facility] Comprehensive Metabolic Prof ilon 09-06-2024 Albumin [Mass/Vol] 4.3 g/dL Normal 3.4-4.[address] [facility] Comment on above: Order Comment: Order Date: 07/31/24 Order Info: 0786-1 - CMP Performed By: #### L 500.4050, L100.0100, L502.0250 #### [facility] Laboratory [address] [place], [address] Albumin/Globulin [Mass ratio] 1.6 {ratio} Normal 0.9-2.4 [facility] Comment on above: Order Comment: Order Date: 07/31/24 Order Info: 0786-1 - CMP Performed By: #### L 500.4050, L100.0100, L502.0250 #### [facility] Laboratory [address] [place], [address] ALK PHOS 67 U/L Normal 35-104 [facility] Comment on above: Order Comment: Order Date: 07/31/24 Order Info: 0786-1 - CMP Performed By: #### L 500.4050, L100.0100, L502.0250 #### [facility] Laboratory [address] [place], [address] ALT [Catalytic activity/Vol] 17 U/L Normal <=34 [facility] Comment on above: Order Comment: Order Date: 07/31/24 Order Info: 0786-1 - CMP Performed By: #### L 500.4050, L100.0100, L502.0250 #### [facility] Laboratory [address] [place], [address] Anion gap [Moles/Vol] 13 mmol/L Normal 5-15 [facility] Comment on above: Order Comment: Order Date: 07/31/24 Order Info: 0786-1 - CMP Performed By: #### L 500.4050, L100.0100, L502.0250 #### [facility] Laboratory [address] [place], [address] AST [Catalytic activity/Vol] 22 U/L Normal <=31 [facility] Comment on above: Order Comment: Order Date: 07/31/24 Order Info: 0786-1 - CMP Performed By: #### L 500.4050, L100.0100, L502.0250 #### [facility] Laboratory [address] [place], [address] Bilirubin [Mass/Vol] 1.09 mg/dL Normal 0.00-1.30 [facility] Comment on above: Order Comment: Order Date: 07/31/24 Order Info: 0786-1 - CMP Performed By: #### L 500.4050, L100.0100, L502.0250 #### [facility] Laboratory [address] [place], [address] BUN/CRE 13.7 RATIO Normal 10-20 [facility] Comment on above: Order Comment: Order Date: 07/31/24 Order Info: 0786-1 - CMP Performed By: #### L 500.4050, L100.0100, L502.0250 #### [facility] Laboratory [address] [place], [address] Calcium [Mass/Vol] 9.3 mg/dL Normal 7.6-11.[address] [facility] Comment on above: Order Comment: Order Date: 07/31/24 Order Info: 0786-1 - CMP Performed By: #### L 500.4050, L100.0100, L502.0250 #### [facility] [address] [place], [address] Chloride [Moles/Vol] 102 mmol/L Normal 96-108 [facility] Comment on above: Order Comment: Order Date: 07/31/24 Order Info: 0786-1 - CMP Performed By: #### L 500.4050, L100.0100, L502.0250 #### [facility] Laboratory [address] [place], [address] CO2 [Moles/Vol] 24.2 mmol/L Normal 22.0-29.0 [facility] Comment on above: Order Comment: Order Date: 07/31/24 Order Info: 0786-1 - CMP Performed By: #### L 500.4050, L100.0100, L502.0250 #### [facility] Laboratory [address] [place], [address] Creatinine [Mass/Vol] 0.8 mg/dL Normal 0.6-1.0 [facility] Comment on above: Order Comment: Order Date: 07/31/24 Order Info: 0786-1 - CMP Performed By: #### L 500.4050, L100.0100, L502.0250 #### [facility] Laboratory [address] [place], [address] GFR/1.73 sq M.predicted among non-blacks MDRD (S/P/Bld) [Vol rate/Area] 68 mL/min/{1.73_m2} Normal >60 [facility] Comment on above: Order Comment: Order Date: 07/31/24 Order Info: 0786-1 - CMP Result Comment: mL/m in/1.73m2 CKD-EPI Creatinine Equation (2020) Performed By: #### L 500.4050, L100.0100, L502.0250 #### [facility] Laboratory [address] [place], [address] Globulin (S) [Mass/Vol] 2.8 g/dL Normal 2.2-4.2 [facility] Comment on above: Order Comment: Order Date: 07/31/24 Order Info: 0786-1 - CMP Performed By: #### L 500.4050, L100.0100, L502.0250 #### [facility] Laboratory [address] [place], [address] Glucose [Mass/Vol] 86 mg/dL Normal 70-[address] [facility] Comment on above: Order Comment: Order Date: 07/31/24 Order Info: 0786-1 - CMP Performed By: #### L 500.4050, L100.0100, L502.0250 #### [facility] Laboratory [address] [place], [address] Potassium [Moles/Vol] 3.7 mmol/L Normal 3.3-5.1 [facility] Comment on above: Order Comment: Order Date: 07/31/24 Order Info: 0786-1 - CMP Performed By: #### L 500.4050, L100.0100, L502.0250 #### [facility] Laboratory [address] [place], [address] Sodium [Moles/Vol] 139 mmol/L Normal 133-[address] [facility] Comment on above: Order Comment: Order Date: 07/31/24 Order Info: 0786-1 - CMP Performed By: #### L 500.4050, L100.0100, L502.0250 #### [facility] Laboratory [address] [place], [address] T PROT 7.1 g/dL Normal 5.9-8.4 [facility] Comment on above: Order Comment: Order Date: 07/31/24 Order Info: 0786-1 - CMP Performed By: #### L 500.4050, L100.0100, L502.0250 #### [facility] Laboratory [address] [place], [address] Urea nitrogen [Mass/Vol] 12 mg/dL Normal 4-19 [facility] Comment on above: Order Comment: Order Date: 07/31/24 Order Info: 0786-1 - CMP Performed By: #### L 500.4050, L100.0100, L502.0250 #### [facility] [place], [address] Creatinine Unsp time (U) [Ma ss/Vol]Ordered By: Jimi Sanderson on 09-06-2024 Creatinine (U) [Mass/Vol] 119.00 mg/dL 28-217 [facility] Creatinine [Moles/Vol]Ordere d By: Jimi Sanderson on 09-06-2024 Creatinine [Mass/Vol] 0.8 mg/dL 0.6-1.0 [facility] Eosinophil percentageOrdered By: Jimi Sanderson on 09-06-2024 Eosinophils/100 WBC (Bld) 2.6 % 0-5 [facility] Erythrocyte distribution wid th ratioOrdered By: Jimi Sandreson on 09-06-2024 Erythrocyte distribution width (RBC) [Ratio] 14.1 % 11.6-14.6 [facility] Erythrocyte distribution wid th standard deviationOrdered By: Jimi Sanderson on 09-06-2024 Erythrocyte distribution width (RBC) [Entitic vol] 45.3 fL High 35.1-43.9 [facility] GFR/1.73 sq M.predicted shiva g non-blacks MDRD (S/P/Bld) [Vol rate/Area]Ordered By: Jimi Sanderson on 09-06-2024 Estimated GFR (MDRD) Non-Af Amer 68 >60 [facility] Comment on above: mL/min/1.73m2 CKD-EP I Creatinine Equation (2020) Hematocrit Auto (Bld) [Volum e fraction]Ordered By: Jimi Sanderson on 09-06-2024 Hematocrit (Bld) [Volume fraction] 44.8 % 37-47 [facility] Hemoglobin measurementOrdere d By: Jimi Sanderson on 09-06-2024 Hemoglobin (Bld) [Mass/Vol] 14.9 g/dL 12.0-15.0 [facility] Immature granulocytes/100 WB C Auto (Bld)Ordered By: Jimi Sanderson on 09-06-2024 Immature granulocytes/100 WBC (Bld) 0.300 % 0.0-0.9 [facility] Comment on above: IG% - Immature Granu locytes (promyelocytes, myelocytes and metamyelocytes) > 1% indicates that a LEFT SHIFT is Present. Laboratory - Chemistry and C hemistry - challengeOrdered By: Jimi Sanderson on 09-06-2024 AST [Catalytic activity/Vol] 22 U/L <32 [facility] Lymphocytes Auto (Unsp spec) [#/Vol]Ordered By: Jimi Sanderson on 09-06-2024 Lymphocytes (Bld) [#/Vol] 2.86 10*3/uL 0.83-4.51 [facility] Lymphocytes/100 WBC Auto (Un sp spec)Ordered By: Jimi Sanderson on 09-06-2024 Lymphocytes/100 WBC (Bld) 38.5 % 19-41 [facility] MCV (mean corpuscular volume ) determinationOrdered By: Jimi Sanderson on 09-06-2024 MCV (RBC) [Entitic vol] 88.0 fL 81-[address] [facility] Mean corpuscular hemoglobin (MCH) determinationOrdered By: Jimi Sanderson on 09-06-2024 MCH (RBC) [Entitic mass] 29.3 pg 27.0-32.0 [facility] Mean corpuscular hemoglobin concentration (MCHC) determinationOrdered By: Jimi Sanderson on 09-06-2024 MCHC (RBC) [Mass/Vol] 33.3 g/dL 32-36 [facility] Mean platelet volume determi nationOrdered By: Jimi Sanderson on 09-06-2024 Platelet mean volume (Bld) [Entitic vol] 10.9 fL 6.2-12.0 [facility] Microalbumin/creat ratio urO rdered By: Jimi Sanderson on 09-06-2024 Urine Microalbumin/Creatinine Ratio 392.4 mg/g CRE [facility] Monocyte percentageOrdered B y: Jimi Sanderson on 09-06-2024 Monocytes/100 WBC (Bld) 6.5 % 0-[address] [facility] Neutrophil percentageOrdered By: Jimi Sanderson on 09-06-2024 Neutrophils/100 WBC (Bld) 51.4 % 47-70 [facility] Nucleated red blood cell per centageOrdered By: Jimi Sanderson on 09-06-2024 Nucleated RBC/100 WBC (Bld) [Ratio] 0 % 0-5 [facility] Platelet countOrdered By: John Sanderson on 09-06-2024 Platelets (Bld) [#/Vol] 220 10*3/uL 150-450 [facility] RBC Auto (Bld) [#/Vol]Ordere d By: Jimi Sanderson on 09-06-2024 RBC (Bld) [#/Vol] 5.09 10*6/uL 4.2-5.4 [facility] Serum globulin measurementOr dered By: Jimi Sanderson on 09-06-2024 Globulin (S) [Mass/Vol] 2.8 g/dL 2.2-4.[address] [facility] Serum glucose measurement (m ass/volume)Ordered By: Jimi Sanderson on 09-06-2024 Glucose [Mass/Vol] 86 mg/dL 70-[address] [facility] Serum or plasma alanine reeder otransferase (ALT) measurementOrdered By: Jimi Sanderson on 09-06-2024 ALT [Catalytic activity/Vol] 17 U/L <35 [facility] Serum or plasma albumin ramon urement (mass/volume)Ordered By: Jimi Sanderson on 09-06-2024 Albumin [Mass/Vol] 4.3 g/dL 3.4-4.[address] [facility] Serum or plasma albumin/glob ulin mass ratioOrdered By: Jimi Sanderson on 09-06-2024 Albumin/Globulin [Mass ratio] 1.6 {ratio} 0.9-2.4 [facility] Serum or plasma alkaline ashli sphatase measurementOrdered By: Jimi Sanderson on 09-06-2024 ALP [Catalytic activity/Vol] 67 U/L 35-104 [facility] Serum or plasma anion gap de termination (moles/volume)Ordered By: Jimi Sanderson on 09-06-2024 Anion gap [Moles/Vol] 13 mmol/L 5-15 [facility] Serum or plasma calcium ramon urement (mass/volume)Ordered By: Jimi Sanderson on 09-06-2024 Calcium [Mass/Vol] 9.3 mg/dL 7.6-11.[address] [facility] Serum or plasma potassium me asurementOrdered By: Jimi Sanderson on 09-06-2024 Potassium [Moles/Vol] 3.7 mmol/L 3.3-5.1 [facility] Serum or plasma sodium measu rement (moles/volume)Ordered By: Jimi Sanderson on 09-06-2024 Sodium [Moles/Vol] 139 mmol/L 133-[address] [facility] Serum or plasma urea nitroge n measurement (mass/volume)Ordered By: Jimi Sanderson on 09-06-2024 Urea nitrogen [Mass/Vol] 12 mg/dL 4-19 [facility] Total proteinOrdered By: Jazmyne Sanderson on 09-06-2024 Protein [Mass/Vol] 7.1 g/dL 5.9-8.[address] [facility] White blood cell (WBC) count Ordered By: iJmi Sanderson on 09-06-2024 WBC (Bld) [#/Vol] 7.4 10*3/uL 4.4-11.[address] [facility] Absolute lymphocyte counton 12-15-2021 Lymphocytes Auto (Unsp spec) [#/Vol] 2.60 10*3/uL 0.83-4.51 [facility] Work Phone: [phone] Basophil percentageon 2021 Basophils/100 WBC (Bld) 0.6 % 0-1 [facility] Work Phone: [phone] Bilirubin [Mass/Vol] 1.20 mg/dL 0.20-1.00 [facility] Work Phone: Comment on above: For patients on eltr ombopag therapy, use of Dimension Arnett TBIL is not recommended. Chloride [Moles/Vol] 107 mmol/L 98-107 [facility] Work Phone: Eosinophils/100 WBC (Bld) 3.7 % 0-5 [facility] Work Phone: Glucose [Mass/Vol] 71 mg/dL 74-[address] [facility] Work Phone: Neutrophils (Bld) [#/Vol] 3.4 10*3/uL 2.0-7.7 [facility] Work Phone: Neutrophils/100 WBC (Bld) 49.4 % 47-70 [facility] Work Phone: [phone] Potassium [Moles/Vol] 3.5 mmol/L 3.5-5.1 [facility] Work Phone: Protein [Mass/Vol] 7.3 g/dL 6.4-8.2 [facility] Work Phone: Sodium [Moles/Vol] 139 mmol/L 136-145 [facility] Work Phone: WBC (Bld) [#/Vol] 7.0 10*3/uL 4.4-11.0 [facility] Work Phone: Blood erythrocytes count (nu mber/volume)on 12-15-2021 RBC (Bld) [#/Vol] 4.89 10*6/uL 4.2-5.4 [facility] Work Phone: Blood hemoglobin measurement (mass/volume)on 12-15-2021 Hemoglobin (Bld) [Mass/Vol] 14.3 g/dL 12.0-15.0 [facility] Work Phone: Blood lymphocytes/100 leukoc yteson 12-15-2021 Lymphocytes/100 WBC (Bld) 37.3 % 19-41 [facility] Work Phone: Blood monocytes/100 leukocyt eson 12-15-2021 Monocytes/100 WBC (Bld) 8.6 % 0-[address] [facility] Work Phone: Blood platelet mean volumeon 12-15-2021 Platelet mean volume (Bld) [Entitic vol] 10.6 fL 6.2-12.0 [facility] Work Phone: Determination of erythrocyte mean corpuscular volume (MCV)on 12-15-2021 MCV (RBC) [Entitic vol] 88.5 fL 81-[address] [facility] Work Phone: Erythrocyte sedimentation ra elvis 12-15-2021 ESR (Bld) [Velocity] 6 mm/h 0-[address] [facility] Work Phone: Hematocrit Auto (Bld) [Volum e fraction]on 12-15-2021 Hematocrit (Bld) [Volume fraction] 43.3 % 37-47 [facility] Work Phone: Interpretation of Borrelia b urgdorferi antibody assayon 12-15-2021 B. burgdorferi Ab (S) [Interp] REF LAB [facility] Work Phone: Laboratory - Chemistry and C hemistry - challengeon 12-15-2021 ALP [Catalytic activity/Vol] 55 U/L 45-117 [facility] Work Phone: [phone] ALT [Catalytic activity/Vol] 28 U/L 13-56 [facility] Work Phone: [phone] CO2 [Moles/Vol] 26.0 mmol/L 21.0-32.0 [facility] Work Phone: [phone] Globulin (S) [Mass/Vol] 3.6 g/dL 2.2-4.[address] [facility] Work Phone: Urea nitrogen/Creatinine [Mass ratio] 19.4 mg/mg 10-20 [facility] Work Phone: Laboratory - Hematology and Cell countson 12-15-2021 Erythrocyte distribution width (RBC) [Entitic vol] 46.1 fL 35.1-43.9 [facility] Work Phone: [phone] Erythrocyte distribution width (RBC) [Ratio] 14.3 % 11.6-14.6 [facility] Work Phone: Immature granulocytes/100 WBC (Bld) 0.400 % 0.0-0.9 [facility] Work Phone: [phone] Comment on above: IG% - Immature Granu locytes (promyelocytes, myelocytes and metamyelocytes) > 1% indicates that a LEFT SHIFT is Present. MCH (RBC) [Entitic mass] 29.2 pg 27.0-32.0 [facility] Work Phone: [phone] Nucleated RBC/100 WBC (Bld) [Ratio] 0 % 0-5 [facility] Work Phone: [phone] MCHC Auto (RBC) [Mass/Vol]on 12-15-2021 MCHC (RBC) [Mass/Vol] 33.0 g/dL 32-36 [facility] Work Phone: No Panel Informationon 12-15 Anti-Nuclear Antibody Screen Negative Negative [facility] Work Phone: Comment on above: Performed at: [address] [id number] Director: Collin Vega PhD, Phone: [phone] Estimated GFR (MDRD) Amer 74 mL/min >60 [facility] Work Phone: Comment on above: GFR Calc Estimated GFR (MDRD) Non-Af Amer 62 mL/min >60 [facility] Work Phone: Comment on above: Non- GFR Calc Parathyroid Hormone (Intact) 49.6 pg/mL 18.4-80.1 [facility] Work Phone: Thyroid Stimulating Hormone (TSH) 3.23 uIU/mL 0.358-3.74 [facility] Work Phone: Platelets bldon 12-15-2021 Platelets (Bld) [#/Vol] 225 10*3/uL 150-450 [facility] Work Phone: Serum or plasma C reactive p rotein measurement (mass/volume)on 12-15-2021 CRP [Mass/Vol] 3.89 mg/L 0.0-3.0 [facility] Work Phone: Comment on above: C-Reactive Protein ( CRP) provides useful information for thediagnosis, therapy and monitoring of inflammatory processesand associated diseases. For the evaluation of Relative Riskfor Cardiovascular Disease, a High Sensitivity CRP (HSCRP)should be ordered. Serum or plasma albumin ramon urement (mass/volume)on 12-15-2021 Albumin [Mass/Vol] 3.7 g/dL 3.2-5.[address] [facility] Work Phone: Serum or plasma albumin/glob ulin mass ratioon 12-15-2021 Albumin/Globulin [Mass ratio] 1.0 {ratio} 0.9-2.4 [facility] Work Phone: Serum or plasma calcium ramon urement (mass/volume)on 12-15-2021 Calcium [Mass/Vol] 9.0 mg/dL 8.5-10.1 [facility] Work Phone: Serum or plasma creatinine m easurement (mass/volume)on 12-15-2021 Creatinine [Mass/Vol] 0.93 mg/dL 0.55-1.02 [facility] Work Phone: Comment on above: The validity of the calculated GFR & GFRAA in patients over 70 years has not been determined. Clinical correlation is essential. Serum or plasma urea nitroge n measurement (mass/volume)on 12-15-2021 Urea nitrogen [Mass/Vol] 18 mg/dL 7-18 [facility] Work Phone: Serum rheumatoid factor dete ctionon 12-15-2021 Rheumatoid factor Ql (S) < 10.0 IU/mL <15 [facility] Work Phone: Thin prep Papanicolaou smear with manual screeningon 12-15-2021 Thin prep Papanicolaou smear with manual screening 20 U/L 15-37 [facility] Work Phone: Thin prep Papanicolaou smear with manual screening 6 5-15 [facility] Work Phone: Thin prep Papanicolaou smear with manual screening Negative Negative [facility] Work Phone: Comment on above: Lyme Antibody Negati veNo laboratory evidence of infection with B. burgdorferi(Lyme disease). Negative results may occur in patientsrecently infected (greater than or equal to 14 days) withB. burgdorferi. If recent infection is suspected, repeattesting on a new sample collected in 7 to 14 days isrecommended.Performed at: [facility] [address] [id number] Director: Collin Vega PhD, Phone: [phone] Absolute lymphocyte counton 11-11-2021 Lymphocytes Auto (Unsp spec) [#/Vol] 2.72 10*3/uL 0.83-4.51 [facility] Work Phone: [phone] Basophil percentageon 2021 Basophils/100 WBC (Bld) 0.5 % 0-[address] [facility] Work Phone: [phone] Bilirubin [Mass/Vol] 1.30 mg/dL 0.20-1.00 [facility] Work Phone: [phone] Comment on above: For patients on eltr ombopag therapy, use of Dimension Arnett TBIL is not recommended. Chloride [Moles/Vol] 105 mmol/L 98-107 [facility] Work Phone: Cholesterol [Mass/Vol] 165 mg/dL <200 [facility] Work Phone: Comment on above: <200 mg/dL Desirable 200-240 mg/dL Borderline >240 mg/dL High Risk Eosinophils/100 WBC (Bld) 3.1 % 0-5 [facility] Work Phone: [phone] Glucose [Mass/Vol] 89 mg/dL 74-[address] [facility] Work Phone: Neutrophils (Bld) [#/Vol] 4.0 10*3/uL 2.0-7.7 [facility] Work Phone: [phone] Neutrophils/100 WBC (Bld) 53.5 % 47-70 [facility] Work Phone: [phone] Potassium [Moles/Vol] 4.1 mmol/L 3.5-5.1 [facility] Work Phone: Protein [Mass/Vol] 7.5 g/dL 6.4-8.[address] [facility] Work Phone: [phone] Sodium [Moles/Vol] 139 mmol/L 136-[address] [facility] Work Phone: Triglyceride [Mass/Vol] 118 mg/dL [facility] Work Phone: [phone] Comment on above: The drugs N-Acetylcy steine and Metamizole may falsely depress this assay.Serum Triglycerides Reference Interval Normal <150 mg/dL Borderline high 150 - 199 mg/dL High 200 - 499 mg/dL Very High > or = 500 mg/dL WBC (Bld) [#/Vol] 7.5 10*3/uL 4.4-11.[address] [facility] Work Phone: Blood erythrocytes count (nu mber/volume)on 11-11-2021 RBC (Bld) [#/Vol] 5.13 10*6/uL 4.2-5.4 [facility] Work Phone: Blood hemoglobin measurement (mass/volume)on 11-11-2021 Hemoglobin (Bld) [Mass/Vol] 14.8 g/dL 12.0-15.0 [facility] Work Phone: Blood lymphocytes/100 leukoc yteson 11-11-2021 Lymphocytes/100 WBC (Bld) 36.2 % 19-41 [facility] Work Phone: Blood monocytes/100 leukocyt eson 11-11-2021 Monocytes/100 WBC (Bld) 6.4 % 0-[address] [facility] Work Phone: Blood platelet mean volumeon 11-11-2021 Platelet mean volume (Bld) [Entitic vol] 10.9 fL 6.2-12.0 [facility] Work Phone: Determination of erythrocyte mean corpuscular volume (MCV)on 11-11-2021 MCV (RBC) [Entitic vol] 88.7 fL 81-[address] [facility] Work Phone: Hematocrit Auto (Bld) [Volum e fraction]on 11-11-2021 Hematocrit (Bld) [Volume fraction] 45.5 % 37-47 [facility] Work Phone: Laboratory - Chemistry and C hemistry - challengeon 11-11-2021 ALP [Catalytic activity/Vol] 61 U/L 45-117 [facility] Work Phone: ALT [Catalytic activity/Vol] 28 U/L 13-56 [facility] Work Phone: CO2 [Moles/Vol] 26.0 mmol/L 21.0-32.0 [facility] Work Phone: Globulin (S) [Mass/Vol] 3.7 g/dL 2.2-4.[address] [facility] Work Phone: Urea nitrogen/Creatinine [Mass ratio] 15.8 mg/mg 10-20 [facility] Work Phone: Laboratory - Hematology and Cell countson 11-11-2021 Erythrocyte distribution width (RBC) [Entitic vol] 46.1 fL 35.1-43.9 [facility] Work Phone: Erythrocyte distribution width (RBC) [Ratio] 14.1 % 11.6-14.6 [facility] Work Phone: Immature granulocytes/100 WBC (Bld) 0.300 % 0.0-0.9 [facility] Work Phone: Comment on above: IG% - Immature Granu locytes (promyelocytes, myelocytes and metamyelocytes) > 1% indicates that a LEFT SHIFT is Present. MCH (RBC) [Entitic mass] 28.8 pg 27.0-32.0 [facility] Work Phone: Nucleated RBC/100 WBC (Bld) [Ratio] 0 % 0-5 [facility] Work Phone: MCHC Auto (RBC) [Mass/Vol]on 11-11-2021 MCHC (RBC) [Mass/Vol] 32.5 g/dL 32-36 [facility] Work [facility]: No Panel Informationon 11-11 Estimated GFR (MDRD) Amer 78 mL/min >60 [facility] Work Phone: Comment on above: GFR Calc Estimated GFR (MDRD) Non-Af Amer 65 mL/min >60 [facility] Work Phone: Comment on above: Non- GFR Calc Thyroid Stimulating Hormone (TSH) 3.07 uIU/mL 0.358-3.74 [facility] Work Phone: Urine Microalbumin/Creatinine Ratio 8.5 mg/g CRE <30 [facility] Work Phone: Platelets bldon 11-11-2021 Platelets (Bld) [#/Vol] 219 10*3/uL 150-450 [facility] Work Phone: Serum or plasma albumin ramon urement (mass/volume)on 11-11-2021 Albumin [Mass/Vol] 3.8 g/dL 3.2-5.[address] [facility] Work Phone: Serum or plasma albumin/glob ulin mass ratioon 11-11-2021 Albumin/Globulin [Mass ratio] 1.0 {ratio} 0.9-2.4 [facility] Work Phone: Serum or plasma calcium ramon urement (mass/volume)on 11-11-2021 Calcium [Mass/Vol] 9.2 mg/dL 8.5-10.[address] [facility] Work Phone: Serum or plasma cholesterol in HDL measurement (mass/volume)on 11-11-2021 Cholesterol in HDL [Mass/Vol] 60 mg/dL [facility] Work Phone: Comment on above: The drugs N-Acetylcy steine and Metamizole may falsely depress this assay. Reference Range HDL <40 mg/dL Low HDL Cholesterol HDL >or= 60 mg/dL High HDL Cholesterol Serum or plasma cholesterol in VLDL measurement (mass/volume)on 11-11-2021 Cholesterol in VLDL [Mass/Vol] 24 mg/dL 5-40 [facility] Work Phone: Serum or plasma creatinine m easurement (mass/volume)on 11-11-2021 Creatinine [Mass/Vol] 0.89 mg/dL 0.55-1.02 [facility] Work Phone: Comment on above: The validity of the calculated GFR & GFRAA in patients over 70 years has not been determined. Clinical correlation is essential. Serum or plasma low density lipoprotein (LDL) cholesterol measurement (mass/volume)on 11-11-2021 Cholesterol in LDL [Mass/Vol] 81 mg/dL 0-130 [facility] Work Phone: Serum or plasma urea nitroge n measurement (mass/volume)on 11-11-2021 Urea nitrogen [Mass/Vol] 14 mg/dL 7-18 [facility] Work Phone: Thin prep Papanicolaou smear with manual screeningon 11-11-2021 Thin prep Papanicolaou smear with manual screening 23 U/L 15-37 [facility] Work Phone: Thin prep Papanicolaou smear with manual screening 8 5-15 [facility] Work Phone: Thin prep Papanicolaou smear with manual screening 6.7 mg/L NO RANGE EST. [facility] Work Phone: Urine creatinine measurement (mass/volume)on 11-11-2021 Creatinine (U) [Mass/Vol] 78.60 mg/dL NO RANGE EST. [facility] Work Phone: Otheron 06-27-2001 CONVERTED FINAL DIAGNOSIS A) RIGHT BREAST, REDUCTION - FIBROCYSTIC CHANGE WITH FOCAL MICROCALCIFICATIONS. INVOLUTIONAL ATROPHY. NEGATIVE FOR MALIGNANCY. B) LEFT BREAST, REDUCTION - FIBROCYSTIC CHANGE WITH FOCAL MICROCALCIFICATIONS. INVOLUTIONAL ATROPHY. NEGATIVE FOR MALIGNANCY. COMMENT: Fibrocystic change includes fibrosis and adenosis. There is no evidence of malignancy. [facility] CONVERTED ORDERING PROVIDER Ordering Provider: NILA GARCIA [facility] Thyroidon 06-27-2001 TSH Lucrecia JAIN M.D., PATHOLOGIST (Electronic signature on file) Final Signed Out: 06/27/2001 13:01 [facility] Vital Signs Date Time Vital Sign Value Performing Clinician Faci lity 02-13-2025 10:38-0400 Body height 165.[address] Jimi Sanderson MD Work Phone: [facility] 02-13-2025 10:38-0400 Body mass index (BMI) [Ratio] 32.3 kg/m2 Dr. Jimi Sanderson MD Work Phone: [facility] 02-13-2025 10:38-0400 Body temperature 98.3 [degF] Dr. Jimi Sanderson MD Work Phone: [facility] 02-13-2025 10:38-0400 Body weight 88.[address] Jimi Sanderson MD Work Phone: [facility] 02-13-2025 10:38-0400 Diastolic blood pressure 78 mm[Hg] Dr. Jimi Sanderson MD Work Phone: [facility] 02-13-2025 10:38-0400 Respiratory rate 16 /min Dr. Jimi Sanderson MD Work Phone: [facility] 02-13-2025 10:38-0400 SaO2% (BldA) [Mass fraction] 96 % Dr. Jimi Sanderson MD Work Phone: [facility] 02-13-2025 10:38-0400 Systolic blood pressure 120 mm[Hg] Dr. Jimi Sanderson MD Work Phone: [facility] Encounters Encounter Date Encounter Type Care Provider Facility Start: 02-13-2025 End: 02-13-[address] Jimi Sanderson MD Work Phone: [facility] Start: 02-13-2025 End: 02-13-2025 Patient encounter procedure Brent Srivastava [place] -[facility] Work Phone: Start: 02-05-[address] Jimi Sanderson MD -Laboratory [place] Work Phone: Start: 02-05-2025 ambulatory Jimi Sanderson Facility:[facility] Start: 09-06-2024 End: 09-06-[address] Jimi Sanderson MD Work Phone: [facility] Work Phone: Start: 09-06-2024 End: 09-06-[address] [facility] Start: 09-06-2024 End: 09-06-2024 ambulatory Jimi Sanderson Facility:[facility] Start: 07-14-2023 End: 07-14-2023 ambulatory [facility] Work Phone: Start: 07-14-2023 End: 07-14-2023 Patient encounter procedure [facility]-Radiology, [place] Work Phone: Start: 11-20-2022 End: 11-20-2022 ambulatory [facility] Work Phone: Start: 11-20-2022 End: 11-20-2022 Discharged Recurring [facility]-Physical Therapy Start: 12-15-2021 End: 12-15-2021 Patient encounter procedure [facility]-Laboratory, [facility] Start: 11-11-2021 End: 11-11-2021 Patient encounter procedure [facility]-Laboratory, [facility] Start: 06-23-2001 End: 06-23-2001 Patient encounter procedure Nila Garcia Work Phone: [facility] Start: 06-23-2001 Results Only Nila Garcia Work Phone: [facility] Procedures Date Procedure Procedure Detail Performing Clinician Start: 02-05-[address] Jimi Sanderson MD Work Phone: Start: 07-14-2023 Plain chest X-ray Start: 06-23-2001 CONVERTED SURGICAL PATHOLOGY Nila Garcia Work Phone: Plan of Treatment Date Care Activity Detail Author Start: 03-12-2020 Influenza vaccination INFLUENZA (#1) [facility] Start: 2004 ADVANCE DIRECTIVE DISCUSSION ADVANCE DIRECTIVE DISCUSSION [facility] Start: 2004 PNEUMOVAX AGE 65 AND OVER WITH 5YR LOOKBACK (#1) PNEUMOVAX AGE 65 AND OVER WITH 5YR LOOKBACK (#1) [facility] Start: 1989 SHINGRIX VACCINE (1 of 2) PEÑA GRIX VACCINE (1 of 2) [facility] Start: 1984 DIABETES SCREEN DIABETES SCREEN [facility] Start: 1984 LIPID SCREEN LIPID SCREEN [facility] Start: 1958 Urine microalbumin profile DTAP,TDAP ,TD (1 - Tdap) [facility] Immunizations Immunization Date Immunization Notes Care Provider Jenaro cardona 04-11-2013 Influenza virus vaccine [facility] 07-12-2007 Pneumococcal Vaccine [facility] Work Phone: 07-12-2007 pneumococcal vaccine , unspecified formulation [facility] Payers Date Payer Category Payer Private Health Insurance [id number] 2024 Self-pay [id number] 2021 Unknown [id number] 2009 Unknown [id number] 2004 Medicare [id number] Private Health Insurance [facility] [id number] Unknown [id number] Social History Date Type Detail Facility Tobacco smoking status MTIS Unknown if ever smoked [facility] Sex Assigned At Not on file [facility] Start: 10-29-2013 End: 10-29-2013 Tobacco smoking status NHIS Unknown if ever smoked [facility] Start: 10-29-2013 Spouse/ Signif icant Other [facility] Start: 1940 Sex Assigned At Female [facility] Start: 10-29-2013 End: 02-13-2025 Tobacco smoking status NHIS Ex-smoker (finding) [facility] Start: 09-20-2024 Sex Female (finding) [facility] Discharge summary 11-20-2022 Note Date & Type Note Facility 11-20-2022 Discharge summary Note Date/Time November 20, 2022 9:31a m [facility] Physical Therapy [facility] [place] [address] / REHABILITATION SERVICES DISCHARGE SUMMARY MR#: [id number] Acct: [id number] Name: CHET LEON Rep #: [id number] : 1940 82 From: Poppy Ness PT Cert. MDT Referring Dr.: Dr. Jimi Sanderson MD Status: REG RCR Insurance: MEDICARE PART A B [employer] It has been my pleasure to treat CHET LEON referred by Dr. Jimi Sanderson MD, with the diagnosis of PALOMA SHLD PAIN AND ARTHRITIS for a total of 5 visit(s). Discharge Date: Please see the following information for a summary of their discharge status. Subjective: PATIENT REPORTS HER SHOULDERS ARE MUCH BETTER. OCCASSIONALLY STILL HAVING SOME DISCOMFORT IN BOTH SHOULDERS. PATIENT STATES SHE HAS BEEN GIVEN HOMEEX'S TODAY. PATIENT REPORTS SHE WOULD LIKE TO TRY TO JUST CONTINUE ON HER OWN WITH HER HOME EX'S AT THIS POINT. R shoulder Pain Intensity (Out of 10): 0 L Shoulder Pain Intensity (Out of 10): 0 L knee Pain Intensity (Out of 10): 5 % Improvement: 80 Objective/Function: ALL GOALS MET. PATIENT DEMO'S PAINFREE PALOMA UE FUNCTIONAL ROM AND STREGNTH TODAY. PATIENT IS APPROPRIATE FOR AND AGREEABLE TO DISCHARGE. Goal 1:: DECREASE C/O PALOMA SHLD AND HAND SX'S. Goal Progress: Goal Met Goal 2:: IMPROVE R UE REACHING UP AND OUT PAINFREE FUNCTION Goal Progress: Goal Met Goal 3:: PATIENT WILL BE INDEP WITH A HEP FOR CONTINUED IMPROVEMENT ONCE FORMAL PHYSICAL THERAPY CONCLUDES. Goal Progress: Goal Met Plan: D/C TO HEP If there are questions or concerns regarding this patient's physical therapy, please feel free to call me at [phone]. Thank you for the referral of thispatient. Sincerely, Poppy Ness PT, Cert MDT Balance/Gait/Functional tests - Balance/Special Test Scores Quick DASH Score: 18.1800 <Electronically signed by Matheus Becker PT. MDT> 11/20/22 0931 CC: Dr. Jimi Sanderson MD ~ CECILIA Signed [facility] Work Phone: Evaluation note Note Date & Type Note Facility Evaluation note No assessment information availa ble [facility] Work Phone: Reason for referral (narrative) Note Date & Type Note Facility Reason for referral (narrative) No reason for referral information available [facility] Work Phone: Family History Relationship Condition Age at Onset Recorded Date/T arleen Unknown Family History?Heart Disease Unknown October 29, 2013 3:13pm Relationship Condition Age at Onset Recorded Date/T arleen Unknown Family History?Heart Disease Unknown October 29, 2013 2:13pm Advance Directives Advance Directive Response Recorded Date/ Time Advance Directives No October 29, 014 4:22pm Living Will No October 29, 2013 4:22pm Power of Accounting Associate No October 29 14 4:22pm Advance Directive Response Recorded Date/ Time Advance Directives No October 29 2 014 3:22pm Living Will No October 29, 2013 3:22pm Power of Accounting Associate No October 29 3:22pm Advance Directive Response Recorded Date/ Time Advance Directives No October 29 2 014 4:22pm Chief Complaint and Reason for Visit Chief Complaint SHOULDER PAIN RX HER E Chief Complaint CHEST XRAY Chief Complaint Admit Date FASTING February 05, 2025 12:4 0pm CONCERN FOR UTI February 13, 2025 10: 23am Summary Purpose Additional Source Comments Source Comments (unrecognize d section and content) In the event this informatio n is protected by the Federal Confidentiality of Alcohol and Drug Abuse Patient Records regulations: The Federal rules restrict any use of the information to criminally investigate or prosecute any alcohol or drug abuse patient.[facility] Goals (unrecognized section and content) Goals may be documented in a n alternate sectionGoals may be documented in an alternate sectionGoals may be documented in an alternate sectionGoals may be documented in an alternate sectionGoals may be documented in an alternate sectionGoals may be documented in an alternate section Care Teams (unrecognized sec tion and content) Team Status: Active Member Role Status Dates Dr. Jimi Sanderson MD Family Provider Active Dr. Jimi Sanderson MD Primary Care Provider Active Team Status: Inactive Member Role Status Dates Dr. Jimi Sanderson MD Primary Care Provide r, Attending Provider, Referring Provider Active Team Status: Inactive Member Role Status Dates Dr. Jimi Sanderson MD Primary Care Provider Active Jessica Mead MEDICAL OBSERVER-C Attending Provider, Referr ing Provider Active Team Status: Inactive Member Role Status Dates Dr. Jimi Sanderson MD Primary Care Provider Active Start: September 06, 2024 End: September 06, 2024 Dr. Jimi Sanderson MD Attending Provider Active St art: September 06, 2024 End: September 06, 2024 Dr. Jimi Sanderson MD Referring Provider Active St art: September 06, 2024 End: September 06, 2024 Team Status: Active Member Role/Relationship Status Dates Dr. Jimi Sanderson MD Family Provider Active Dr. Jimi Sanderson MD Primary Care Provider Active Team Status: Active Member Role/Relationship Status Dates Dr. Jimi Sanderson MD Primary Care Provider Active Start: February 05, 2025 Dr. Jimi Sanderson MD Attending Provider Active St art: February 05, 2025 Dr. Jimi Sanderson MD Referring Provider Active St art: February 05, 2025 Team Status: Inactive Member Role/Relationship Status Dates Dr. Jimi Sanderson MD Primary Care Provider Active Start: February 13, 2025 End: February 13, 2025 Dr. Jimi Sanderson MD Referring Provider Active St art: February 13, 2025 End: February 13, 2025 Brent VARGHESE, PA Attending Provider Active Start: February 13, 2025 End: February 13, 2025 INFORMATION SOURCE (unrecogn ized section and content) DATE CREATED AUTHOR 02/06/2025 [facility] FOR RECORDS PERTAINING TO PATIENTS WHO ARE [...] BE BASED ON THE PRIMARY CLINICAL RECORDS. [facility] [facility]. provides no warranty or guarantee of the accuracy or completeness of information in this document.
== END | disposition home or self-care (01) ==
LOC: LABSPEC 11:27
PROVIDERS: PCP Family Medicine; Visit Provider Physician Assistant
DX: R30.0 Dysuria (principal)
CPT/HCPCS: 87086; 87088